=== PATIENT | female | born 1950 | race Caucasian/White ===

== ENCOUNTER → 2017-12-04 09:59 | Outpatient (CLI) | payer MEDICARE, OTHER, SELFPAY ==
[2017-12-04 11:29] LABS: Absolute Lymphocyte Count 2.54 X10^3/ul (0.83-4.51); Absolute Neutrophil Count 4.2 X10^3/uL (2.0-7.7); Basophil# 0.06 X10^3/uL; Basophil% 0.8 % (0-1); Eosinophils% 4.1 % (0-5); Hematocrit 37.2 % (37-47); Hemoglobin 11.2 g/dl (12.0-15.0); Lymphocyte # 2.54 X10^3/ul (4.0); Lymphocyte % 34.3 % (19-41); Mean Corp Hgb Conc 30.1 g/gl (32-36); Mean Corpuscular Hgb 26.1 pg (27.0-32.0); Mean Corpuscular Volume 86.7 fL (81-99); Mean Platelet Vol. 9.5 fl (6.2-12.0); Monocyte# 0.33 X10^3/uL; Monocyte% 4.5 % (0-10); Neutrophil # 4.16 X10^3/uL (2.7-7.7); Neutrophil % 56.2 % (47-70); Platelet Count 276 K/mm3 (150-450); RBC Distribution Width CV 14.4 % (11.6-14.6); RBC Distribution Width SD 45.3 fl (35.1-43.9); Red Blood Count 4.29 M/mm3 (4.2-5.4); White Blood Count 7.4 K/mm3 (4.4-11.0)
[2017-12-04 11:33] LABS: Microalbumin,Random Urine 12.3 mg/L (NO RANGE EST.); Microalbumin:Creatinine Ratio 8.2 mg/g CRE (<30 mg/g CRE)
[2017-12-04 11:36] LABS: POSITIVE COUNT NO; POSITIVE DIFFERENTIAL NO; POSITIVE MORPHOLOGY NO
[2017-12-04 12:01] LABS: T3 Total - Triiodothyronine 0.73 ng/mL (0.6-1.81)
[2017-12-04 12:04] LABS: ALB/GLOB Ratio 1.1 RATIO (0.9-2.4); AST(SGOT) 15 U/L (15-37); Alanine Aminotransfer ALT/SGPT 25 U/L (13-56); Albumin, Serum 3.7 g/dL (3.2-5.0); Alkaline Phosphatase 57 U/L (45-117); Anion Gap 8 (5-15); BUN 29 mg/dL (7-18); BUN/Creat Ratio 24.2 RATIO (10-20); Calcium,Total 8.4 mg/dL (8.5-10.1); Chloride 104 mmol/L (98-107); Cholesterol 163 mg/dL (200); EST Glomerular Filtration Rate 48 mL/min (>60); Est Glom Filt Rate - Afr Amer 58 mL/min (>60); Globulin 3.5 g/dL (2.2-4.2); Glucose 115 mg/dL (74-106); High Density Lipoprotein 46 mg/dL; Potassium 4.3 mmol/L (3.5-5.1); Protein, Total 7.2 g/dL (6.4-8.2); Sodium Level 139 mmol/L (136-145); T4 Free Direct 1.18 ng/dL (0.76-1.46); Thyroid Stim Hormone (TSH) 1.77 uIU/mL (0.358-3.74); Triglycerides 116 mg/dL; Very Low Density Lipoprotein 23 mg/dL (5-40)
== END ==
PROVIDERS: Family Provider Family Medicine; PCP Family Medicine; Visit Provider Family Medicine
DX: E11.22 Type 2 diabetes mellitus with diabetic chronic kidney disease (principal); N18.2 Chronic kidney disease, stage 2 (mild); E03.9 Hypothyroidism, unspecified; E78.1 Pure hyperglyceridemia
CPT/HCPCS: 36415; 80053; 80061; 82043; 82570; 84439; 84443; 84480; 85025

== ENCOUNTER → 2019-06-10 10:45 | Outpatient (CLI) | payer MEDICARE, OTHER, SELFPAY ==
[2019-06-10 12:40] LABS: Absolute Lymphocyte Count 2.16 X10^3/uL (0.83-4.51); Absolute Neutrophil Count 5.1 X10^3/uL (2.0-7.7); Basophil# 0.07 X10^3/uL; Basophil% 0.8 % (0-1); Eosinophil# 0.56 X10^3/uL; Eosinophils% 6.7 % (0-5); Hematocrit 37.3 % (37-47); Hemoglobin 11.1 g/dL (12.0-15.0); Lymphocyte # 2.16 X10^3/ul (4.0); Mean Corp Hgb Conc 29.8 g/dL (32-36); Mean Corpuscular Hgb 26.8 pg (27.0-32.0); Mean Corpuscular Volume 90.1 fL (81-99); Mean Platelet Vol. 9.8 fl (6.2-12.0); Monocyte# 0.44 X10^3/uL; Monocyte% 5.3 % (0-10); NRBC Flagged by Analyzer 0 % (0-5); Neutrophil # 5.06 X10^3/uL (2.7-7.7); Neutrophil % 60.8 % (47-70); Platelet Count 272 K/mm3 (150-450); RBC Distribution Width CV 14.6 % (11.6-14.6); RBC Distribution Width SD 47.7 fl (35.1-43.9); Red Blood Count 4.14 M/mm3 (4.2-5.4); White Blood Count 8.3 K/mm3 (4.4-11.0)
[2019-06-10 13:04] LABS: T3 Total - Triiodothyronine 0.82 ng/mL (0.6-1.81)
[2019-06-10 13:08] LABS: Hemoglobin A1c 6.6 % (4.2-6.3)
[2019-06-10 13:10] LABS: ALB/GLOB Ratio 1.1 RATIO (0.9-2.4); AST(SGOT) 11 U/L (15-37); Alanine Aminotransfer ALT/SGPT 26 U/L (13-56); Albumin, Serum 3.8 g/dL (3.2-5.0); Alkaline Phosphatase 62 U/L (45-117); Anion Gap 8 (5-15); BUN 40 mg/dL (7-18); BUN/Creat Ratio 27.2 RATIO (10-20); Calcium,Total 8.8 mg/dL (8.5-10.1); Chloride 108 mmol/L (98-107); Cholesterol 124 mg/dL (200); Creatinine, Serum 1.47 mg/dL (0.55-1.02); EST Glomerular Filtration Rate 38 mL/min (>60); Est Glom Filt Rate - Afr Amer 45 mL/min (>60); Globulin 3.6 g/dL (2.2-4.2); Glucose 136 mg/dL (74-106); High Density Lipoprotein 43 mg/dL; Potassium 4.7 mmol/L (3.5-5.1); Protein, Total 7.4 g/dL (6.4-8.2); Sodium Level 140 mmol/L (136-145); T4 Free Direct 1.29 ng/dL (0.76-1.46); Thyroid Stim Hormone (TSH) 1.01 uIU/mL (0.358-3.74); Triglycerides 138 mg/dL; Very Low Density Lipoprotein 28 mg/dL (5-40)
[2019-06-10 13:34] LABS: Microalbumin,Random Urine 13.3 mg/L (NO RANGE EST.); Microalbumin:Creatinine Ratio 6.7 mg/g CRE (<30 mg/g CRE)
== END ==
PROVIDERS: Family Provider Family Medicine; PCP Family Medicine; Visit Provider Family Medicine
DX: E11.22 Type 2 diabetes mellitus with diabetic chronic kidney disease (principal); N18.2 Chronic kidney disease, stage 2 (mild); E07.9 Disorder of thyroid, unspecified; E78.1 Pure hyperglyceridemia
CPT/HCPCS: 36415; 80053; 80061; 82043; 82570; 83036; 84439; 84443; 84480; 85025

== ENCOUNTER → 2019-08-26 09:36 | Outpatient (CLI) | payer MEDICARE, OTHER, SELFPAY ==
[2019-08-26 13:10] LABS: ALB/GLOB Ratio 1.1 RATIO (0.9-2.4); AST(SGOT) 14 U/L (15-37); Alanine Aminotransfer ALT/SGPT 26 U/L (13-56); Albumin, Serum 3.8 g/dL (3.2-5.0); Alkaline Phosphatase 59 U/L (45-117); Anion Gap 9 (5-15); BUN 35 mg/dL (7-18); BUN/Creat Ratio 22.9 RATIO (10-20); Calcium,Total 8.8 mg/dL (8.5-10.1); Chloride 106 mmol/L (98-107); Creatinine, Serum 1.53 mg/dL (0.55-1.02); EST Glomerular Filtration Rate 36 mL/min (>60); Est Glom Filt Rate - Afr Amer 43 mL/min (>60); Globulin 3.4 g/dL (2.2-4.2); Glucose 124 mg/dL (74-106); Potassium 4.2 mmol/L (3.5-5.1); Protein, Total 7.2 g/dL (6.4-8.2); Sodium Level 139 mmol/L (136-145)
== END ==
PROVIDERS: Family Provider Family Medicine; PCP Family Medicine; Visit Provider Family Medicine
DX: N28.9 Disorder of kidney and ureter, unspecified (principal)
CPT/HCPCS: 36415; 80053

== ENCOUNTER → 2019-09-22 15:25 | Outpatient (CLI) | payer MEDICARE, OTHER, SELFPAY ==
--- NOTE | 2019-09-22 15:30 | BI_ITS ---
MAMMOGRAPHY - BILATERAL SCREENING REASON FOR EXAM: Female, 69 years old. Routine annual screening examination. PERTINENT HISTORY: Grandmother with breast cancer. TECHNIQUE: Digital bilateral breast shaylee (3D mammographic acquisition) in the CC and MLO projections. 2-D mediolateral oblique (MLO) and craniocaudad (CC) views of both breasts were obtained. CAD: Full Field Digital Mammography with Computer Added Detection was performed. COMPARISON: Comparison is made with prior examination dated July 18, 2018. FINDINGS: Breast Composition: The breasts are almost entirely fatty. There are no dominant masses or suspicious calcifications. Stable benign-appearing bilateral axillary lymph nodes. No other significant abnormalities are identified. There has been no significant change since the prior study. BI/SCREEN MAMM (CAD) W/SHAYLEE BILAT IMPRESSION: Stable bilateral screening mammogram. Yearly follow-up mammogram recommended. (A) ASSESSMENT CATEGORY: BIRADS Category 2: Benign. A letter regarding these results will be sent to the patient by the facility within 30 days. Approximately 10% of breast cancers are not detected by mammography. A normal mammogram should not delay biopsy of a clinically suspicious abnormality. [id number] Electronically Signed: Seth Mcmahon, at 8:49 EST , Service support ,
--- NOTE | 2019-09-22 15:34 | BD_ITS ---
STUDY: DUAL ENERGY X-RAY ABSORPTIOMETRY / DXA REASON FOR EXAM: Female, 69 years old. 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 COMPARISON: None. FINDINGS: Lumbar Spine (L1-L4): g/cm2 (1.201) / T-score (0.2) / Z-score (1.8) Findings are suggestive of normal bone density with a low fracture risk. Left Femur Total: g/cm2 (0.904) / T-score (-0.8) / Z-score (0.5) Left Femoral Neck: g/cm2 (0.851) / T-score (-1.3) / Z-score (0.3) Right Femur Total: g/cm2 (0.891) / T-score (-0.9) / Z-score (0.4) Right Femoral Neck: g/cm2 (0.900) / T-score (-1.0) / Z-score (0.6) BD/Dexa Bone Density Study IMPRESSION: The patient is considered osteopenic as outlined below according to World Ori Organization (WHO) criteria with a low fracture risk. Reference Information: The T-score is the number of standard deviations above or below the standard which is normal for young adults at their peak bone mineral density. The World Health Organization (WHO) interprets the T-scores as follows: Above -1 Normal bone density Between -1 and -2.5 Osteopenia Equal to / or below -2.5 Osteoporosis As a practical clinical guideline, osteopenia may be graded as follows: Mild -1 through -1.5 Moderate -1.6 through -2.0 Severe -2.1 through -2.4 The Z-score is the number of standard deviations above or below age-matched controls. A Z-score of less than -1.5 would be considered abnormal. References: 1. NIH Osteoporosis and Related Bone Diseases http://www.osteo.org 2. International Society for Clinical Densitometry http://www.iscd.org 3. National Osteoporosis Foundation http://www.nof.org Electronically Signed: Seth Mcmahon, at 14:40 EST , Service support ,
--- NOTE | 2019-09-22 16:19 | RAD_ITS ---
STUDY: X-RAY - PELVIS AND BILATERAL HIPS REASON FOR EXAM: Female, 69 years old. Pain in both hips for a month or so. Pain since doing a lot of walking during lawn vacation. Fall last week. Increasing pain in left hip. TECHNIQUE: AP view of the pelvis.? 2 views of the right hip, and 2 views of the left hip were obtained. COMPARISON: None. FINDINGS: There is a non-specific bowel gas pattern. Normal visualized soft tissue structures. Normal bilateral iliac wings, sacroiliac joints and visualized sacrum. Normal bilateral superior and inferior pubic rami. Normal pubic symphysis. Normal bilateral ischial tuberosities. Normal visualized right femoral head. Normal right acetabulum. There is mild articular joint space narrowing of the right hip. Normal visualized left femoral head. Normal left acetabulum. There is mild articular joint space narrowing of the left hip. RAD/Hips B/L min 2 views w/ Pelvis IMPRESSION: Degenerative changes of both hips without acute abnormality Electronically Signed: Waqas Diehl DO at 23:28 EST Tel [phone], Service support ,
== END ==
PROVIDERS: Family Provider Family Medicine; PCP Family Medicine; Referring Provider Family Medicine; Visit Provider Family Medicine
DX: M25.551 Pain in right hip (principal); M25.552 Pain in left hip; Z12.31 Encounter for screening mammogram for malignant neoplasm of breast; M81.0 Age-related osteoporosis without current pathological fracture
CPT/HCPCS: 73521; 77063; 77067; 77080

== ENCOUNTER → 2020-06-29 10:18 | Outpatient (CLI) | payer MEDICARE, OTHER, SELFPAY ==
[2020-06-29 12:48] LABS: Absolute Lymphocyte Count 2.76 X10^3/uL (0.83-4.51); Absolute Neutrophil Count 5.5 X10^3/uL (2.0-7.7); Basophil# 0.07 X10^3/uL; Basophil% 0.8 % (0-1); Eosinophil# 0.36 X10^3/uL; Eosinophils% 3.9 % (0-5); Hematocrit 37.7 % (37-47); Hemoglobin 11.1 g/dL (12.0-15.0); Lymphocyte # 2.76 X10^3/ul (4.0); Lymphocyte % 30.1 % (19-41); Mean Corp Hgb Conc 29.4 g/dL (32-36); Mean Corpuscular Hgb 26.2 pg (27.0-32.0); Mean Corpuscular Volume 89.1 fL (81-99); Mean Platelet Vol. 10.2 fl (6.2-12.0); Monocyte# 0.47 X10^3/uL; Monocyte% 5.1 % (0-10); NRBC Flagged by Analyzer 0 % (0-5); Neutrophil # 5.49 X10^3/uL (2.7-7.7); Neutrophil % 59.8 % (47-70); Platelet Count 308 K/mm3 (150-450); RBC Distribution Width CV 14.1 % (11.6-14.6); RBC Distribution Width SD 45.4 fl (35.1-43.9); Red Blood Count 4.23 M/mm3 (4.2-5.4); White Blood Count 9.2 K/mm3 (4.4-11.0)
[2020-06-29 13:52] LABS: AST(SGOT) 13 U/L (15-37); Alanine Aminotransfer ALT/SGPT 26 U/L (13-56); Albumin, Serum 3.7 g/dL (3.2-5.0); Alkaline Phosphatase 76 U/L (45-117); Anion Gap 8 (5-15); BUN 38 mg/dL (7-18); BUN/Creat Ratio 24.7 RATIO (10-20); Calcium,Total 8.8 mg/dL (8.5-10.1); Chloride 106 mmol/L (98-107); Cholesterol 157 mg/dL (200); Creatinine, Serum 1.54 mg/dL (0.55-1.02); EST Glomerular Filtration Rate 36 mL/min (>60); Est Glom Filt Rate - Afr Amer 43 mL/min (>60); Globulin 3.8 g/dL (2.2-4.2); Glucose 137 mg/dL (74-106); High Density Lipoprotein 52 mg/dL; Potassium 4.2 mmol/L (3.5-5.1); Protein, Total 7.5 g/dL (6.4-8.2); Sodium Level 140 mmol/L (136-145); T4 Free Direct 1.03 ng/dL (0.76-1.46); Thyroid Stim Hormone (TSH) 3.87 uIU/mL (0.358-3.74); Triglycerides 159 mg/dL; Very Low Density Lipoprotein 32 mg/dL (5-40)
[2020-06-30 15:58] LABS: Microalbumin,Random Urine < 5.0 mg/L (NO RANGE EST.)
== END ==
PROVIDERS: PCP Family Medicine; Visit Provider Family Medicine
DX: E11.22 Type 2 diabetes mellitus with diabetic chronic kidney disease (principal); N18.2 Chronic kidney disease, stage 2 (mild); E03.9 Hypothyroidism, unspecified; E78.1 Pure hyperglyceridemia
CPT/HCPCS: 36415; 80053; 80061; 82043; 82570; 84439; 84443; 84481; 85025

== ENCOUNTER → 2020-07-27 14:12 | Outpatient (CLI) | payer MEDICARE, OTHER, SELFPAY ==
[2020-07-27 15:30] LABS: Absolute Lymphocyte Count 2.34 X10^3/uL (0.83-4.51); Absolute Neutrophil Count 6.3 X10^3/uL (2.0-7.7); Basophil# 0.06 X10^3/uL; Basophil% 0.6 % (0-1); Eosinophils% 2.2 % (0-5); Hematocrit 37.4 % (37-47); Hemoglobin 10.8 g/dL (12.0-15.0); Lymphocyte # 2.34 X10^3/ul (4.0); Lymphocyte % 25.2 % (19-41); Mean Corp Hgb Conc 28.9 g/dL (32-36); Mean Corpuscular Volume 90.1 fL (81-99); Monocyte# 0.39 X10^3/uL; Monocyte% 4.2 % (0-10); NRBC Flagged by Analyzer 0 % (0-5); Neutrophil # 6.25 X10^3/uL (2.7-7.7); Neutrophil % 67.5 % (47-70); Platelet Count 232 K/mm3 (150-450); RBC Distribution Width CV 14.6 % (11.6-14.6); RBC Distribution Width SD 48.1 fl (35.1-43.9); Red Blood Count 4.15 M/mm3 (4.2-5.4); White Blood Count 9.3 K/mm3 (4.4-11.0)
[2020-07-27 16:09] LABS: Anion Gap 5 (5-15); BUN 37 mg/dL (7-18); BUN/Creat Ratio 23.4 RATIO (10-20); Calcium,Total 8.5 mg/dL (8.5-10.1); Chloride 105 mmol/L (98-107); Creatinine, Serum 1.58 mg/dL (0.55-1.02); EST Glomerular Filtration Rate 34 mL/min (>60); Est Glom Filt Rate - Afr Amer 42 mL/min (>60); Ferritin 23 ng/mL (8-252); Free T3 2.2 pg/mL (2.18-3.98); Glucose 208 mg/dL (74-106); Iron 50 ug/dL (50-170); Potassium 4.4 mmol/L (3.5-5.1); Sodium Level 136 mmol/L (136-145); T4 Free Direct 1.21 ng/dL (0.76-1.46); Thyroid Stim Hormone (TSH) 0.84 uIU/mL (0.358-3.74)
[2020-07-27 16:15] LABS: Vitamin B12 292 pg/mL (211-911)
== END ==
PROVIDERS: PCP Family Medicine; Visit Provider Family Medicine
DX: E03.9 Hypothyroidism, unspecified (principal); D64.9 Anemia, unspecified; N18.30 Chronic kidney disease, stage 3 unspecified
CPT/HCPCS: 36415; 80048; 82607; 82728; 83540; 84439; 84443; 84481; 85025

== ENCOUNTER 2020-08-12 11:30 | Outpatient (RCR) | payer MEDICARE, OTHER, SELFPAY ==
--- NOTE | 2020-03-18 12:23 | HP.PTEVAL_ITS ---
Patient's Visit Information PATRICIA VALENCIA is a 69 year old F referred to Physical Therapy by Dr. Serafin Hurst DPM with a diagnosis of L humerous fracture. Date of Evaluation: 03/16/20 Physical Therapist: Paul Damon DPT - Visit Plan Frequency: 2-3x /Week Duration: 4-6 Weeks Plan: Start with PROM slowing increaseing as tolerated. Progressing towrads AAROM as tolerated. May use ice/heat as needed. - Subjective Pt. is here today for her initial evaluation with diagnosis of L humerous fracture. Pt. reports falling ~6 weeks ago, she slipped on 3 steps and fell onto her L arm. Pt. has subsequent 3 fractures of her proximal L humerous. Pt. was in sling until last week. She is weaning out of her sling currently. She did not wear today. Pt. is having pain with any attempts with lifting her arm, upper body dressing, grooming, and starts to ache more throughout the day. Pt. denies NT, but does have pain that extends down her arm to elbow at times. Pt. is to follow up with doctor in 1 month. Pt. is allowed to progress stretching both active and passively. pt. is hopeful to get back to all recreational and household activities without limitations. - Pain L shoulder Pain Intensity (Out of 10): 3 Pain Intensity Range: 1, 6 - Objective POSTURE: Pt. has slightly depresses L shoulder, slighh Forward shoulder. Pt. tends to keep her L arm in guarded posture. PALPATION: Pt. has increased tenderness along lateral aspect of her shoulder, throughout deltoid, subacromial space. Pt. is also tend at L lats, subscap, throughout scapular region. NEURO: Pt. has normal sensation of BUEs. ROM: L shoulder- PROM- 90deg, abd 87deg, ER 15deg. AROM:- flexion 75deg, abd 55deg, ER at side 15deg. R shoulder full ROM without increase in symptoms. - Goals Goal 1:: LTG: Pt. to be I with HEP. Goal Time Frame: 4-6 Weeks Goal 2:: STG: Pt. to have full PROM of L shoulder Goal Time Frame: 2-4 Weeks Goal 3:: LTG: Pt. to have full AROM of L shoulder without increase in symptoms. Goal Time Frame: 4-6 Weeks Goal 4:: STG: pt. to sleep throughout the night without increase in symptoms. Goal Time Frame: 2-4 Weeks Goal 5:: STG: Pt. to complete basic ADLs without increase in symptoms. Goal Time Frame: 2-4 Weeks - Rehabilitation Potential Physical Therapy Diagnosis: Pt. has signs and symptoms consistent wtih L humeral fracture without surgical fixation. Pt. has L shoulder hypombility, weakness and increased pain adn would benefit from PT to address these limitations, progressing back to all ADLs and recreational activiies without limitations. Rehabilitation Potential: Good - Anticipated Interventions Patient/Client Instruction: Educate patient on: Condition, Plan of Care, Risk Factors, Benefits of Fitness Program For the Purpose of:: To improve decision making, To facilitate caregiver knowledge, To improve self management, To prevent re-injury, To improve ability to perform tasks related to life management, To improve tolerance to ADL's Therapeutic Exercise to Include: Strength training, Power training, Endurance training, Postural training, Flexibilty training, Passive ROM, Active ROM, Scapular Strength/Stabilization For the Purpose of:: To decrease pain, To decrease swelling/inflammation, To increase ROM, To improve nutrient delivery to tissue, To increase oxygenation p erfusion IF ES: Yes Cryotherapy (ice pack, ice massage): Yes Thermo therapy (hot pack): Yes For the Purpose of:: To decrease pain, To decrease swelling/inflammation, To increase ROM, To improve nutrient delivery to tissue, To increase oxygenation perfusion Thank you for the opportunity to evaluate your patient. For Medicare and Medicare HMO plans, please review the plan of care and approve it. It will need to be FAXED BACK to us at [phone] for Medicare purposes. For Medicare only, by signing this I certify the plan of care. Please let me know if there are questions or concerns regarding this plan of care. Physician Signature: Date:
--- NOTE | 2020-04-28 12:58 | HP.PTREVAL ---
HI Hendrickson, It has been my pleasure to treat PATRICIA VALENCIA over the last 11 visits for L humerous fracture. Please see the progress note below for an update on the physical therapy plan of care! Subjective: Pt. being seen for her re assessment today. Pt. reports overall doing better. I am about 40% better.' Pt. reports being HEP compliant. Pt. reports being discharged from her physician, but is to follow up if needed or not preogressing as expected. Pt. reports having 2/10 pain pre treatment today. Objective/Function: Pt. is overall doing well. PROM: L shoulder- flexion 165deg, abd 155deg. AROM: L shoulder- flexion 90deg, abd 88deg. functional ER C2 aberrant motion, functional IR L3 mild increase NW. MMT: 3+/5 through. Pt. is doing well with her ROM, but still has pain with increased use of musculature of deltoid. Pt. has increased pain with increase activation of. Pt. is ready to initiate isometrics and progressing to strengthening tolerated. Plan Plan: Cont. with PROM end ranges, progress AROM. Initiate isometrics progressing to strengthening as able. Goals Goal 1:: LTG: Pt. to be I with HEP. Goal Time Frame: 4-6 Weeks Goal Progress: Progressing Goal 2:: STG: Pt. to have full PROM of L shoulder Goal Time Frame: 2-4 Weeks Goal Progress: Progressing Goal 3:: LTG: Pt. to have full AROM of L shoulder without increase in symptoms. Goal Time Frame: 4-6 Weeks Goal Progress: Progressing Goal 4:: STG: pt. to sleep throughout the night without increase in symptoms. Goal Time Frame: 2-4 Weeks Goal Progress: Progressing Goal 5:: STG: Pt. to complete basic ADLs without increase in symptoms. Goal Time Frame: 2-4 Weeks Goal Progress: Progressing Anticipated Interventions Patient/Client Instruction: Educate patient on: Condition, Plan of Care, Risk Factors, Benefits of Fitness Program For the Purpose of:: To improve decision making, To facilitate caregiver knowledge, To improve self management, To prevent re-injury, To improve ability to perform tasks related to life management, To improve tolerance to ADL's Therapeutic Exercise to Include: Strength training, Power training, Endurance training, Postural training, Flexibilty training, Passive ROM, Active ROM, Scapular Strength/Stabilization For the Purpose of:: To decrease pain, To decrease swelling/inflammation, To increase ROM, To improve nutrient delivery to tissue, To increase oxygenation perfusion IF ES: Yes Cryotherapy (ice pack, ice massage): Yes Thermo therapy (hot pack): Yes For the Purpose of:: To decrease pain, To decrease swelling/inflammation, To increase ROM, To improve nutrient delivery to tissue, To increase oxygenation perfusion Please do not hesitate to contact me at [phone] by phone or if you have questions or concerns regarding this new plan of care! Sincerely, СЕРГЕЙ RocheT
--- NOTE | 2020-06-07 12:24 | HP.PTREVAL ---
HI Hendrickson, It has been my pleasure to treat PATRICIA VALENCIA over the last 22 visits for L humerous fracture. Please see the progress note below for an update on the physical therapy plan of care! Subjective: Pt. reports overall doing better, I have really noticed a difference over the past few weeks. Pt. reports being 65% better overall. She still reports pain/stiffness with lifting her arm over head, behind her head and behind her back. Pt. reports 2/10 pain constantly with a sharp muscle spasm like pain occassional ~1 per day in deltoid region. Pt. denies N/T currently. Objective/Function: PROM: L shoulder- flexon 165deg, abd 155deg increase nW, ER at 90deg 65deg. IR at 9d0eg of abd 30deg increase NW. AROM: flexion 135deg, abd 110deg. functional ER C2 aberrant motion, functional IR L5 tight.. MMT: L shoulder- flexon 4-/5, abd 4-/5, ER 4/5, IR 4/5, ext 4+/5. Elbow 4+/5 flexion and extend. Pt is drier and grinder tender throughout. Pt. reports being able to complete more and more ADLs at home. She able to complete UB dressing, but is having trouble holding her arm over her head to do her hair and washing her hair. Plan Plan: Cont. to progress end range of motion, especially ER and flexion. Progress strengthening, including functionally as well. Goals Goal 1:: LTG: Pt. to be I with HEP. Goal Time Frame: 4-6 Weeks Goal Progress: Progressing Goal 2:: STG: Pt. to have full PROM of L shoulder Goal Time Frame: 2-4 Weeks Goal Progress: Progressing Goal 3:: LTG: Pt. to have full AROM of L shoulder without increase in symptoms. Goal Time Frame: 4-6 Weeks Goal Progress: Progressing Goal 4:: STG: pt. to sleep throughout the night without increase in symptoms. Goal Time Frame: 2-4 Weeks Goal Progress: Goal Met Goal 5:: STG: Pt. to complete basic ADLs without increase in symptoms. Goal Time Frame: 2-4 Weeks Goal Progress: Progressing Anticipated Interventions Patient/Client Instruction: Educate patient on: Condition, Plan of Care, Risk Factors, Benefits of Fitness Program For the Purpose of:: To improve decision making, To facilitate caregiver knowledge, To improve self management, To prevent re-injury, To improve ability to perform tasks related to life management, To improve tolerance to ADL's Therapeutic Exercise to Include: Strength training, Power training, Endurance training, Postural training, Flexibilty training, Passive ROM, Active ROM, Scapular Strength/Stabilization For the Purpose of:: To decrease pain, To decrease swelling/inflammation, To increase ROM, To improve nutrient delivery to tissue, To increase oxygenation perfusion IF ES: Yes Cryotherapy (ice pack, ice massage): Yes Thermo therapy (hot pack): Yes For the Purpose of:: To decrease pain, To decrease swelling/inflammation, To increase ROM, To improve nutrient delivery to tissue, To increase oxygenation perfusion Please do not hesitate to contact me at [phone] by phone or if you have questions or concerns regarding this new plan of care! Sincerely, Paul Damon DPT
--- NOTE | 2020-06-22 10:50 | HP.PTREVAL ---
HI Hendrickson, It has been my pleasure to treat PATRICIA VALENCIA over the last 27 visits for L humerous fracture. Please see the progress note below for an update on the physical therapy plan of care! Subjective: Pt. reprots that she has been having increased spasming in her L proximal arm recently. Pt. reports symptoms at proximal lateral aspect of her shoulder/humerus. Pt. denies N/T. Pt. has no pain at rest. Pt. did see her PCP who thinks she might have some biceps involvement, which may be true, but she reports most of her symptoms are more lateral to this structure. Objective/Function: PROM: L shoulder- flexion 140deg, abd 125deg, ER at 90deg 45deg. AROM: flexion 90deg, abd 88deg, functional ER C2 aherrant motion, functional IR L5/SI region. MMT: 4/5 throughout. Pt. is still pretty tender wtih MMT and functional use of her L shoulder. Pt. has been progressing, but has started to plateau with her mobility and strengthening. Pt. has increased pain with most testing, resulting in difficulty with functional mobility. I would recommend that she follow up with ortho again to determine healing and if there is another pathology going on. Plan Plan: Cont w/ POC easing back into exs. Goals Goal 1:: LTG: Pt. to be I with HEP. Goal Time Frame: 4-6 Weeks Goal Progress: Goal Met Goal 2:: STG: Pt. to have full PROM of L shoulder Goal Time Frame: 2-4 Weeks Goal Progress: Progressing Goal 3:: LTG: Pt. to have full AROM of L shoulder without increase in symptoms. Goal Time Frame: 4-6 Weeks Goal Progress: Progressing Goal 4:: STG: pt. to sleep throughout the night without increase in symptoms. Goal Time Frame: 2-4 Weeks Goal Progress: Progressing Goal 5:: STG: Pt. to complete basic ADLs without increase in symptoms. Goal Time Frame: 2-4 Weeks Goal Progress: Progressing Anticipated Interventions Patient/Client Instruction: Educate patient on: Condition, Plan of Care, Risk Factors, Benefits of Fitness Program For the Purpose of:: To improve decision making, To facilitate caregiver knowledge, To improve self management, To prevent re-injury, To improve ability to perform tasks related to life management, To improve tolerance to ADL's Therapeutic Exercise to Include: Strength training, Power training, Endurance training, Postural training, Flexibilty training, Passive ROM, Active ROM, Scapular Strength/Stabilization For the Purpose of:: To decrease pain, To decrease swelling/inflammation, To increase ROM, To improve nutrient delivery to tissue, To increase oxygenation perfusion IF ES: Yes Cryotherapy (ice pack, ice massage): Yes Thermo therapy (hot pack): Yes For the Purpose of:: To decrease pain, To decrease swelling/inflammation, To increase ROM, To improve nutrient delivery to tissue, To increase oxygenation perfusion Please do not hesitate to contact me at [phone] by phone or if you have questions or concerns regarding this new plan of care! Sincerely, СЕРГЕЙ RocheT
--- NOTE | 2020-07-19 10:49 | HP.PTREVAL ---
HI Hendrickson, It has been my pleasure to treat PATRICIA VALENCIA over the last 28 visits for L humerous fracture. Please see the progress note below for an update on the physical therapy plan of care! Subjective: Pt reports not completing exercises at home and having reduced pain over the last few days from taking oral steroids. Objective/Function: L shoulder ROM flex 124, abd 76, IR 70, ER 2 deg. Empty end feels in all planes d/t pain felt at end range. R shoulder WNL. L elbow strength flex 4+/5, ext 3+/5. Pain felt w/ ext testing. R elbow flex/ext 4+/5. Pt received MRI of her L shoulder on 06/28/20. Findings included SLAP type 2A tear, flap tear of the anterior labrum, 50% tear of supraspinatus insertion, evolving AVN, and adhesive capsulitis. Pt has been taking oral steroids to help reduce inflammation and pain. PT intervention ordered w/ diagnosis of Adhesive capsulitis of L shoulder and Sprain of L rotator cuff capsule. Goal of PT is to reduce the adhesive capsulitis and improve L shoulder ROM prior to having a shoulder replacement. Plan Plan: PROM of L shoulder to reduce adhesive capsulitis and improve overall ROM. Ultrasound, ice, and MH may also be used to help reduce inflammation and pain. Goals Goal 1:: LTG: Pt. to be I with HEP. Goal Time Frame: 4-6 Weeks Goal Progress: Goal Met Goal 2:: STG: Pt. to have full PROM of L shoulder Goal Time Frame: 2-4 Weeks Goal Progress: Progressing Goal 3:: LTG: Pt. to have full AROM of L shoulder without increase in symptoms. Goal Time Frame: 4-6 Weeks Goal Progress: Progressing Goal 4:: STG: pt. to sleep throughout the night without increase in symptoms. Goal Time Frame: 2-4 Weeks Goal Progress: Progressing Goal 5:: STG: Pt. to complete basic ADLs without increase in symptoms. Goal Time Frame: 2-4 Weeks Goal Progress: Progressing Anticipated Interventions Patient/Client Instruction: Educate patient on: Condition, Plan of Care, Risk Factors, Benefits of Fitness Program For the Purpose of:: To improve decision making, To facilitate caregiver knowledge, To improve self management, To prevent re-injury, To improve ability to perform tasks related to life management, To improve tolerance to ADL's Therapeutic Exercise to Include: Strength training, Power training, Endurance training, Postural training, Flexibilty training, Passive ROM, Active ROM, Scapular Strength/Stabilization For the Purpose of:: To decrease pain, To decrease swelling/inflammation, To increase ROM, To improve nutrient delivery to tissue, To increase oxygenation perfusion IF ES: Yes Cryotherapy (ice pack, ice massage): Yes Thermo therapy (hot pack): Yes For the Purpose of:: To decrease pain, To decrease swelling/inflammation, To increase ROM, To improve nutrient delivery to tissue, To increase oxygenation perfusion Please do not hesitate to contact me at [phone] by phone or if you have questions or concerns regarding this new plan of care! Sincerely, СЕРГЕЙ RocheT
--- NOTE | 2020-08-26 11:46 | HP.PTDCSUM ---
It has been my pleasure to treat PATRICIA DAYENIC referred by HI Hendrickson, with the diagnosis of L humerous fracture for a total of 33 visit(s). Discharge Date: 08/12/20 Please see the following information for a summary of their discharge status. Subjective: Pt. to have surgery in 2 weeks on her shoulder. Pt. will be DC as she will be under care of new physican for surgery. L shoulder Pain Intensity (Out of 10): 3 % Improvement: 25 Objective/Function: Pt. did well today. Pt. is following up with new physician for surgery in 2 weeks. Pt. will be DC at this point in time. Goal 1:: LTG: Pt. to be I with HEP. Goal Progress: Goal Met Goal 2:: STG: Pt. to have full PROM of L shoulder Goal Progress: Progressing Goal 3:: LTG: Pt. to have full AROM of L shoulder without increase in symptoms. Goal Progress: Progressing Goal 4:: STG: pt. to sleep throughout the night without increase in symptoms. Goal Progress: Progressing Goal 5:: STG: Pt. to complete basic ADLs without increase in symptoms. Goal Progress: Progressing Plan: DC as she is having new surgery. Discharge Comments: Pt. is scheduled to have surgery and will be DC to his care. If there are questions or concerns regarding this patient's physical therapy, please feel free to call me at [phone]. Thank you for the referral of this patient. Sincerely, Paul Damon DPT
== END 2020-08-12 19:00 | disposition home or self-care (01) ==
LOC: PT 11:30
PROVIDERS: PCP Family Medicine; Referring Provider Physician Assistant; Visit Provider Physician Assistant
DX: S42.232D 3-part fracture of surgical neck of left humerus, subsequent encounter for fracture with routine healing (principal); M75.02 Adhesive capsulitis of left shoulder; S43.422D Sprain of left rotator cuff capsule, subsequent encounter
CPT/HCPCS: 97110; 97140; 97161; 97164; 97530

== ENCOUNTER → 2020-08-22 12:22 | Outpatient (CLI) | payer MEDICARE, OTHER, SELFPAY ==
[2020-08-22 15:42] LABS: Absolute Lymphocyte Count 2.51 X10^3/uL (0.83-4.51); Absolute Neutrophil Count 6.6 X10^3/uL (2.0-7.7); Basophil# 0.06 X10^3/uL; Basophil% 0.6 % (0-1); Eosinophil# 0.27 X10^3/uL; Eosinophils% 2.7 % (0-5); Hematocrit 38.9 % (37-47); Hemoglobin 11.4 g/dL (12.0-15.0); Lymphocyte # 2.51 X10^3/ul (4.0); Lymphocyte % 25.3 % (19-41); Mean Corp Hgb Conc 29.3 g/dL (32-36); Mean Corpuscular Volume 88.6 fL (81-99); Mean Platelet Vol. 10.4 fl (6.2-12.0); Monocyte# 0.45 X10^3/uL; Monocyte% 4.5 % (0-10); NRBC Flagged by Analyzer 0 % (0-5); Neutrophil # 6.62 X10^3/uL (2.7-7.7); Neutrophil % 66.6 % (47-70); Platelet Count 340 K/mm3 (150-450); RBC Distribution Width CV 14.6 % (11.6-14.6); RBC Distribution Width SD 46.9 fl (35.1-43.9); Red Blood Count 4.39 M/mm3 (4.2-5.4); White Blood Count 9.9 K/mm3 (4.4-11.0)
[2020-08-22 16:04] LABS: AST(SGOT) 18 U/L (15-37); Alanine Aminotransfer ALT/SGPT 37 U/L (13-56); Albumin, Serum 3.8 g/dL (3.2-5.0); Alkaline Phosphatase 80 U/L (45-117); Anion Gap 6 (5-15); BUN 36 mg/dL (7-18); BUN/Creat Ratio 22.4 RATIO (10-20); Calcium,Total 8.9 mg/dL (8.5-10.1); Chloride 103 mmol/L (98-107); Creatinine, Serum 1.61 mg/dL (0.55-1.02); EST Glomerular Filtration Rate 34 mL/min (>60); Est Glom Filt Rate - Afr Amer 41 mL/min (>60); Globulin 3.9 g/dL (2.2-4.2); Glucose 193 mg/dL (74-106); Potassium 4.6 mmol/L (3.5-5.1); Protein, Total 7.7 g/dL (6.4-8.2); Sodium Level 136 mmol/L (136-145)
== END ==
PROVIDERS: PCP Family Medicine; Referring Provider Family Medicine; Visit Provider Family Medicine
DX: E11.22 Type 2 diabetes mellitus with diabetic chronic kidney disease (principal); N18.2 Chronic kidney disease, stage 2 (mild); Z51.81 Encounter for therapeutic drug level monitoring
CPT/HCPCS: 36415; 80053; 85025

== ENCOUNTER → 2020-11-02 14:01 | Outpatient (CLI) | payer MEDICARE, OTHER, SELFPAY ==
--- NOTE | 2020-11-02 14:03 | BI_ITS ---
MAMMOGRAPHY - BILATERAL SCREENING REASON FOR EXAM: Female, 70 years old. Routine annual screening examination. PERTINENT HISTORY: Sister with breast cancer. TECHNIQUE: Digital bilateral breast shaylee (3D mammographic acquisition) in the CC and MLO projections. 2-D mediolateral oblique (MLO) and craniocaudad (CC) views of both breasts were obtained. CAD: Full Field Digital Mammography with Computer Added Detection was performed. COMPARISON: Comparison is made with prior study dated 09/22/2019. FINDINGS: Breast Composition: The breasts are almost entirely fatty. There are no dominant masses or suspicious calcifications. Stable small benign appearing bilateral axillary lymph nodes. No other significant abnormalities are identified. There has been no significant change since the prior study. BI/SCRN MAMM (CAD)W/SHAYLEE BILAT IMPRESSION: Stable bilateral screening mammogram. Yearly follow-up mammogram recommended. (A) ASSESSMENT CATEGORY: BIRADS Category 2: Benign. A letter regarding these results will be sent to the patient by the facility within 30 days. Approximately 10% of breast cancers are not detected by mammography. A normal mammogram should not delay biopsy of a clinically suspicious abnormality. [id number] Electronically Signed: Seth Mcmahon MD at 14:43 EST , Service support ,
--- NOTE | 2020-11-02 14:28 | US_ITS ---
STUDY: RENAL ULTRASOUND - COMPLETE REASON FOR EXAM: Female, 70 years old. CKD 2 TECHNIQUE: Ultrasound evaluation of the kidneys was performed with real-time and static hough-scale imaging. COMPARISON: None. FINDINGS: RIGHT KIDNEY: Normal location of the right kidney, which is normal in size. The right kidney measures 9.1 cm x 5.9 cm x 4.6 cm. There is a normal cortex of the right kidney. The renal cortex measures 1.1 cm. There is no right renal mass or cyst. There are no right renal calculi. There is no right hydronephrosis. DISTAL RIGHT URETER: There is non-visualization of the distal right ureter. There is no demonstrated right ureterovesical junction calculus. There is a visualized right ureteral jet. LEFT KIDNEY: Normal location of the left kidney, which is normal in size. The left kidney measures 9.1 cm x 4 cm x 4.4 cm. There is a normal cortex of the left kidney. The renal cortex measures 1.1 cm. There is a 1 cm x 0.9 cm x 0.7 cm left renal cyst. There are no left renal calculi. There is an extra-renal pelvis of the left kidney. There is no distention of the renal calyces. DISTAL LEFT URETER: There is non-visualization of the distal left ureter. There is no demonstrated left ureterovesical junction calculus. There is a visualized left ureteral jet. BLADDER: The distended urinary bladder has a volume of 99 ml. There is a normal wall thickness of the distended urinary bladder. There is no demonstrated mass within the urinary bladder. There are no demonstrated bladder calculi. US/Kidney and Bladder IMPRESSION: Small left renal cyst. Left extrarenal pelvis. Electronically Signed: Seth Mcmahon MD at 15:07 EST , Service support ,
== END ==
LOC: OPBI 14:24 → US 14:27
PROVIDERS: PCP Family Medicine; Referring Provider Internal Medicine Nephrology; Visit Provider Internal Medicine Nephrology
DX: Z12.31 Encounter for screening mammogram for malignant neoplasm of breast (principal); N18.2 Chronic kidney disease, stage 2 (mild)
CPT/HCPCS: 76770; 77063; 77067

== ENCOUNTER 2020-11-04 15:30 | Outpatient (RCR) | payer MEDICARE, OTHER, SELFPAY ==
--- NOTE | 2020-08-26 10:22 | HP.PTEVAL_ITS ---
Patient's Visit Information PATRICIA VALENCIA is a 70 year old F referred to Physical Therapy by SHARMIN ESCOTO with a diagnosis of Adhesive Capsulitis. Date of Evaluation: 08/26/20 Physical Therapist: Paul Damon DPT - Visit Plan Frequency: 3x /Week Duration: 4-6 Weeks Plan: Start with phase I and II shoulder program. May use ice/heat as needed. - Subjective Pt. is here today for her intiial evaluation with diagnosis of adhesive ca psulitis. Pt. had previously been seen for a proximal humerus fx. Pt. initially progressed well, but started to have high levels of pain once phase III started. Ultimately ended up getting MRI, suggesting avascular necrosis and RTC tear. Physician did surgery yesterday and ultimately only had adhesive capsulitis with subsequent release. Pt. arrives today still under nerve block and reports minimal feeling and volitional movement of her L arm. Pt. arrives in sling with bandage in place. Bandages to be taken off tomorrow. Pt. is hopeful to reduce symptoms and regain ROM/strength in order to get back to all recreational activities and wants to be able to hold her grandson without limitations. - Pain L shoulder Pain Intensity (Out of 10): 0 Pain Intensity Range: 0, 5 - Objective POSTURE: Pt. has decent posture in stance, L shoulder in guarded posture at side. PALPATION: Bandage in place, no signs of infection, mild brusing in UT region, mild swelling here as well. NEURO: Decreased sensation to light touch, able to sense firmer palpation. Expected after block. Normal DTR of BUEs. ROM: PROM: L shoulder flexion 175deg, abd 165deg, ER at 90deg of abd 85deg, IR at 90deg of abd 40deg. No pain associated with ROM this date. Fluid mobility of L shoulder throughout. MMT: DNT due to nerve block this date. - Goals Goal 1:: LTG: Pt. to be I with HEP. Goal Time Frame: 2-4 Weeks Goal 2:: STG: Pt. to have full PROM of L shoulder with minimal symptoms. Goal Time Frame: 2-4 Weeks Goal 3:: LTG: Pt. to have full AROM of L shoulder with 0-1/10 pain. Goal Time Frame: 4-6 Weeks Goal 4:: STG: Pt. to sleep throughout the night without increase in symptoms. Goal Time Frame: 2-4 Weeks Goal 5:: LTG: Pt. to complete all ADLS and IADLs without limitatons. Goal Time Frame: 4-6 Weeks - Rehabilitation Potential Physical Therapy Diagnosis: Pt. has signs and symptoms consistent with adhesive capsulitis with subsequent surgical release. Pt. has good PROM currently, but is under nerve block currently. She needs PT to work on maintain her current motion, progress AROM then back to functional exercises as tolerated. Rehabilitation Potential: Excellent - Anticipated Interventions Patient/Client Instruction: Educate patient on: Condition, Plan of Care, Risk Factors, Benefits of Fitness Program For the Purpose of:: To facilitate caregiver knowledge, To improve self management, To prevent re-injury, To improve ability to perform tasks related to life management, To improve tolerance to ADL's Therapeutic Exercise to Include: Strength training, Power training, Endurance training, Postural training, Flexibilty training, Passive ROM, Active ROM, Scapular Strength/Stabilization For the Purpose of:: To decrease pain, To decrease swelling/inflammation, To increase ROM, To improve nutrient delivery to tissue, To increase oxygenation perfusion, To improve muscle performance and motor function, To improve health of tissue, To decrease soft tissue restriction, To increase flexibility/ROM Manual Therapy Techniques to Include: Mobilization, Passive ROM, Soft tissue mobilization For the Purpose of:: To decrease pain, To decrease swelling/inflammation, To increase ROM, To improve nutrient delivery to tissue Cryotherapy (ice pack, ice massage): Yes Thermo therapy (hot pack): Yes For the Purpose of:: To decrease pain, To decrease swelling/inflammation, To increase ROM, To improve nutrient delivery to tissue Thank you for the opportunity to evaluate your patient. For Medicare and Medicare HMO plans, please review the plan of care and approve it. It will need to be FAXED BACK to us at [phone] for Medicare purposes. For Medicare only, by signing this I certify the plan of care. Please let me know if there are questions or concerns regarding this plan of care. Physician Signature: Date:
--- NOTE | 2020-09-27 13:31 | HP.PTREVAL ---
SHARMIN ESCOTO, It has been my pleasure to treat PATRICIA VALENCIA over the last 10 visits for Adhesive Capsulitis. Please see the progress note below for an update on the physical therapy plan of care! Subjective: Pt. reports I am really feeling like I am getting better.' Pt. reports no pain pre treatment. Objective/Function: Pt. is doing a lot better. PROM: L shoulder- flexion 170deg, abd 165deg, ER at 90deg 80deg, IR at 9d0eg 50deg. AROM: L shoulder- flexion 145deg, abd 140deg, functional ER C3, functional IR L5. MMT: 4/5 throuhgout no increase in symptoms. Pt. is tolerating all exercises well. She is progressing as expected. I have added some isometrics at this point Plan Plan: COnt. to progress. Pt. to follow up with physician next week. Goals Goal 1:: LTG: Pt. to be I with HEP. Goal Time Frame: 2-4 Weeks Goal Progress: Progressing Goal 2:: STG: Pt. to have full PROM of L shoulder with minimal symptoms. Goal Time Frame: 2-4 Weeks Goal Progress: Progressing Goal 3:: LTG: Pt. to have full AROM of L shoulder with 0-1/10 pain. Goal Time Frame: 4-6 Weeks Goal Progress: Progressing Goal 4:: STG: Pt. to sleep throughout the night without increase in symptoms. Goal Time Frame: 2-4 Weeks Goal Progress: Progressing Goal 5:: LTG: Pt. to complete all ADLS and IADLs without limitatons. Goal Time Frame: 4-6 Weeks Goal Progress: Progressing Anticipated Interventions Patient/Client Instruction: Educate patient on: Condition, Plan of Care, Risk Factors, Benefits of Fitness Program For the Purpose of:: To facilitate caregiver knowledge, To improve self management, To prevent re-injury, To improve ability to perform tasks related to life management, To improve tolerance to ADL's Therapeutic Exercise to Include: Strength training, Power training, Endurance training, Postural training, Flexibilty training, Passive ROM, Active ROM, Scapular Strength/Stabilization For the Purpose of:: To decrease pain, To decrease swelling/inflammation, To increase ROM, To improve nutrient delivery to tissue, To increase oxygenation perfusion, To improve muscle performance and motor function, To improve health of tissue, To decrease soft tissue restriction, To increase flexibility/ROM Manual Therapy Techniques to Include: Mobilization, Passive ROM, Soft tissue mobilization For the Purpose of:: To decrease pain, To decrease swelling/inflammation, To increase ROM, To improve nutrient delivery to tissue Cryotherapy (ice pack, ice massage): Yes Thermo therapy (hot pack): Yes For the Purpose of:: To decrease pain, To decrease swelling/inflammation, To increase ROM, To improve nutrient delivery to tissue Please do not hesitate to contact me at [phone] by phone or if you have questions or concerns regarding this new plan of care! Sincerely, СЕРГЕЙ RocheT
--- NOTE | 2020-11-04 16:50 | HP.PTDCSUM ---
It has been my pleasure to treat PATRICIA Laura STUDENIC referred by SHARMIN ESCOTO, with the diagnosis of Adhesive Capsulitis for a total of 18 visit(s). Discharge Date: 11/04/20 Please see the following information for a summary of their discharge status. Subjective: Pt. reprots no pain today. I am doing all the things that I want to be doing. She reports being HEP compliant and has started a gym routine as well. Pt. reports being 85% better overall. L shoulder Pain Intensity (Out of 10): 0 % Improvement: 85 Objective/Function: Pt. has good ROM of her L shoulder, close to full without limitations. SLight loss of functinal IR, but is improving. Pt. has regained a good deal of strength as well. She is no longer having any pain and is doing and HEP and gym strengthening exercises. Pt. will be DC to HEp at this point in time. Goal 1:: LTG: Pt. to be I with HEP. Goal Progress: Goal Met Goal 2:: STG: Pt. to have full PROM of L shoulder with minimal symptoms. Goal Progress: Goal Met Goal 3:: LTG: Pt. to have full AROM of L shoulder with 0-1/10 pain. Goal Progress: Progressing Goal 4:: STG: Pt. to sleep throughout the night without increase in symptoms. Goal Progress: Goal Met Goal 5:: LTG: Pt. to complete all ADLS and IADLs without limitatons. Goal Progress: Goal Met Plan: DC to HEP and gym strengthening/ROM exercises. Discharge Comments: Pt. wll be DC to HEP and gym exercises at this point in time. Pt. has progressed very well with both ROM and functional strengthening. If there are questions or concerns regarding this patient's physical therapy, please feel free to call me at [phone]. Thank you for the referral of this patient. Sincerely, Paul Damon DPT
== END 2020-11-04 19:00 | disposition home or self-care (01) ==
LOC: PT 15:30
PROVIDERS: PCP Family Medicine
DX: M75.02 Adhesive capsulitis of left shoulder (principal)
CPT/HCPCS: 97110; 97161; 97164

== ENCOUNTER → 2020-11-23 11:42 | Outpatient (CLI) | payer MEDICARE, OTHER, SELFPAY ==
[2020-11-23 15:17] LABS: Absolute Lymphocyte Count 1.73 X10^3/uL (0.83-4.51); Absolute Neutrophil Count 4.9 X10^3/uL (2.0-7.7); Basophil# 0.07 X10^3/uL; Basophil% 0.9 % (0-1); Eosinophil# 0.24 X10^3/uL; Eosinophils% 3.2 % (0-5); Hematocrit 35.8 % (37-47); Hemoglobin 10.4 g/dL (12.0-15.0); Lymphocyte # 1.73 X10^3/ul (4.0); Lymphocyte % 23.2 % (19-41); Mean Corp Hgb Conc 29.1 g/dL (32-36); Mean Corpuscular Hgb 24.8 pg (27.0-32.0); Mean Corpuscular Volume 85.2 fL (81-99); Mean Platelet Vol. 10.4 fl (6.2-12.0); Monocyte# 0.52 X10^3/uL; NRBC Flagged by Analyzer 0 % (0-5); Neutrophil # 4.87 X10^3/uL (2.7-7.7); Neutrophil % 65.4 % (47-70); Platelet Count 298 K/mm3 (150-450); RBC Distribution Width SD 46.4 fl (35.1-43.9); White Blood Count 7.5 K/mm3 (4.4-11.0)
[2020-11-23 15:42] LABS: Vitamin B12 473 pg/mL (211-911); Vitamin D,25 Hydroxy 26.8 ng/mL
[2020-11-23 15:44] LABS: Hemoglobin A1c 7.5 % (3.8-5.6)
[2020-11-23 15:57] LABS: ALB/GLOB Ratio 1.1 RATIO (0.9-2.4); AST(SGOT) 29 U/L (15-37); Alanine Aminotransfer ALT/SGPT 57 U/L (13-56); Albumin, Serum 3.6 g/dL (3.2-5.0); Alkaline Phosphatase 83 U/L (45-117); Anion Gap 7 (5-15); BUN 34 mg/dL (7-18); BUN/Creat Ratio 20.5 RATIO (10-20); Calcium,Total 8.7 mg/dL (8.5-10.1); Chloride 106 mmol/L (98-107); Creatinine, Serum 1.66 mg/dL (0.55-1.02); EST Glomerular Filtration Rate 33 mL/min (>60); Est Glom Filt Rate - Afr Amer 39 mL/min (>60); Globulin 3.4 g/dL (2.2-4.2); Glucose 202 mg/dL (74-106); Potassium 4.6 mmol/L (3.5-5.1); Sodium Level 138 mmol/L (136-145); Thyroid Stim Hormone (TSH) 1.31 uIU/mL (0.358-3.74)
== END ==
PROVIDERS: PCP Family Medicine; Referring Provider Family Medicine; Visit Provider Family Medicine
DX: E11.22 Type 2 diabetes mellitus with diabetic chronic kidney disease (principal); N18.30 Chronic kidney disease, stage 3 unspecified; E07.9 Disorder of thyroid, unspecified; E53.8 Deficiency of other specified B group vitamins; E55.9 Vitamin D deficiency, unspecified; Z51.81 Encounter for therapeutic drug level monitoring
CPT/HCPCS: 36415; 80053; 82306; 82607; 83036; 84439; 84443; 84481; 85025

== ENCOUNTER → 2020-12-02 13:27 | Outpatient (CLI) | payer MEDICARE, OTHER, SELFPAY ==
[2020-12-02 15:10] LABS: Platelet Count 341 K/mm3 (150-450); RET-HE 26.4 pg (30-35); Reticulocyte Count 1.86 % (0.5-1.5)
[2020-12-02 15:27] LABS: Ferritin 17 ng/mL (8-252); Iron 33 ug/dL (50-170)
== END ==
PROVIDERS: PCP Family Medicine; Referring Provider Family Medicine; Visit Provider Family Medicine
DX: E61.1 Iron deficiency (principal); D64.9 Anemia, unspecified
CPT/HCPCS: 36415; 82728; 83540; 85045

== ENCOUNTER 2020-12-13 11:02 | Outpatient (CLI) | payer MEDICARE, OTHER, SELFPAY ==
[2020-12-13 11:11] VITALS: BP 125/54; PULSE 86; RESP 16; TEMP 35.8; O2SAT 95; BMI 41.8
[2020-12-13] MEDS: 0.9% NaCl Peripheral Flush Adult/Peds IV (11:21)
[2020-12-13] MEDS: 0.9% NaCl IVPB Med Flush (250 mL) 15 ML IV (11:28)
[2020-12-13 12:07] VITALS: BP 105/40; PULSE 69; RESP 16; TEMP 35.9; O2SAT 95
[2020-12-13 12:40] VITALS: BP 105/40; PULSE 69; RESP 16; TEMP 35.9; O2SAT 95
== END 2020-12-13 15:00 | disposition home or self-care (01) ==
LOC: MEDOUTP 11:04
PROVIDERS: PCP Family Medicine; Referring Provider Family Medicine; Visit Provider Family Medicine
DX: D50.9 Iron deficiency anemia, unspecified (principal); K90.9 Intestinal malabsorption, unspecified
CPT/HCPCS: 96365; J1756; J7050; A4216

== ENCOUNTER 2020-12-27 10:56 | Outpatient (CLI) | payer MEDICARE, OTHER, SELFPAY ==
[2020-12-27] MEDS: 0.9% NaCl IVPB Med Flush (250 mL) 15 ML IV (11:24)
[2020-12-27] MEDS: 0.9% NaCl Peripheral Flush Adult/Peds IV (11:24)
[2020-12-27 11:40] VITALS: BP 126/64; PULSE 83; RESP 16; TEMP 35.7; O2SAT 96; BMI 41.8
[2020-12-27 12:05] VITALS: BP 98/58; PULSE 67; RESP 16; TEMP 36.3; O2SAT 95
== END 2020-12-27 14:00 ==
LOC: MEDOUTP 10:57
PROVIDERS: PCP Family Medicine; Referring Provider Family Medicine; Visit Provider Family Medicine
DX: D50.9 Iron deficiency anemia, unspecified (principal); K90.9 Intestinal malabsorption, unspecified
CPT/HCPCS: 96365; J1756; J7050; A4216

== ENCOUNTER → 2021-01-10 10:32 | Outpatient (CLI) | payer MEDICARE, OTHER, SELFPAY ==
[2020-12-27 11:40] VITALS: BMI 41.8
[2021-01-10] MEDS: 0.9% NaCl Peripheral Flush Adult/Peds IV (11:12)
[2021-01-10] MEDS: 0.9% NaCl IVPB Med Flush (250 mL) 15 ML IV (11:13)
[2021-01-10 11:16] VITALS: BP 113/58; PULSE 67; RESP 16; TEMP 36.1; O2SAT 96
[2021-01-10 12:00] VITALS: BP 128/67; PULSE 64
== END ==
PROVIDERS: PCP Family Medicine; Referring Provider Family Medicine; Visit Provider Family Medicine
DX: K90.9 Intestinal malabsorption, unspecified (principal); D50.9 Iron deficiency anemia, unspecified
CPT/HCPCS: 96365; J1756; J7050; A4216

== ENCOUNTER → 2021-01-24 10:28 | Outpatient (CLI) | payer MEDICARE, OTHER, SELFPAY ==
[2020-12-27 11:40] VITALS: BMI 41.8
[2021-01-24 10:36] VITALS: BP 122/50; PULSE 75; RESP 16; TEMP 35.8; O2SAT 96; BMI 41.7
[2021-01-24] MEDS: 0.9% NaCl Peripheral Flush Adult/Peds IV (11:02)
[2021-01-24] MEDS: 0.9% NaCl IVPB Med Flush (250 mL) 15 ML IV (11:02)
== END ==
PROVIDERS: PCP Family Medicine; Referring Provider Family Medicine; Visit Provider Family Medicine
DX: K90.9 Intestinal malabsorption, unspecified (principal); D50.9 Iron deficiency anemia, unspecified
CPT/HCPCS: 96365; J1756; J7050; A4216

== ENCOUNTER → 2021-02-07 10:27 | Outpatient (CLI) | payer MEDICARE, OTHER, SELFPAY ==
[2021-01-24 10:36] VITALS: BMI 41.7
[2021-02-07] MEDS: 0.9% NaCl Peripheral Flush Adult/Peds IV (10:55)
[2021-02-07] MEDS: 0.9% NaCl IVPB Med Flush (250 mL) 15 ML IV (10:55)
[2021-02-07 11:05] VITALS: BP 112/46; PULSE 70; RESP 16; TEMP 36.2; O2SAT 96; BMI 41.1
[2021-02-07 11:08] LABS: Absolute Lymphocyte Count 2.13 X10^3/uL (0.83-4.51); Absolute Neutrophil Count 4.6 X10^3/uL (2.0-7.7); Basophil# 0.04 X10^3/uL; Basophil% 0.5 % (0-1); Eosinophil# 0.25 X10^3/uL; Eosinophils% 3.4 % (0-5); Hematocrit 39.3 % (37-47); Hemoglobin 11.8 g/dL (12.0-15.0); Lymphocyte # 2.13 X10^3/ul (0.83-4.51); Lymphocyte % 29.1 % (19-41); Mean Corpuscular Hgb 26.6 pg (27.0-32.0); Mean Corpuscular Volume 88.7 fL (81-99); Mean Platelet Vol. 9.7 fl (6.2-12.0); Monocyte# 0.33 X10^3/uL; Monocyte% 4.5 % (0-10); NRBC Flagged by Analyzer 0 % (0-5); Neutrophil # 4.55 X10^3/uL (2.7-7.7); Neutrophil % 62.1 % (47-70); Platelet Count 215 K/mm3 (150-450); RBC Distribution Width SD 54.7 fl (35.1-43.9); Red Blood Count 4.43 M/mm3 (4.2-5.4); Reticulocyte Count 1.96 % (0.5-1.5); White Blood Count 7.3 K/mm3 (4.4-11.0)
[2021-02-07 11:22] LABS: Iron 63 ug/dL (50-170)
[2021-02-07 11:44] VITALS: BP 115/50; PULSE 69; RESP 16; TEMP 36.2; O2SAT 97
[2021-02-07 19:05] LABS: Xtra Tube EP Lab EXTRA TUBE
== END ==
PROVIDERS: PCP Family Medicine; Referring Provider Family Medicine; Visit Provider Family Medicine
DX: D50.9 Iron deficiency anemia, unspecified (principal); K90.9 Intestinal malabsorption, unspecified
CPT/HCPCS: 96365; 83540; 85025; 85045; J1756; J7050; A4216

== ENCOUNTER → 2021-02-20 15:04 | Outpatient (CLI) | payer MEDICARE, OTHER, SELFPAY ==
[2021-02-07 11:05] VITALS: BMI 41.1
[2021-02-20 17:55] LABS: Absolute Lymphocyte Count 2.17 X10^3/uL (0.83-4.51); Absolute Neutrophil Count 4.6 X10^3/uL (2.0-7.7); Basophil# 0.07 X10^3/uL; Basophil% 0.9 % (0-1); Hematocrit 38.5 % (37-47); Hemoglobin 11.6 g/dL (12.0-15.0); Lymphocyte # 2.17 X10^3/ul (0.83-4.51); Lymphocyte % 29.1 % (19-41); Mean Corp Hgb Conc 30.1 g/dL (32-36); Mean Corpuscular Hgb 26.9 pg (27.0-32.0); Mean Corpuscular Volume 89.1 fL (81-99); Mean Platelet Vol. 10.4 fl (6.2-12.0); Monocyte# 0.32 X10^3/uL; Monocyte% 4.3 % (0-10); NRBC Flagged by Analyzer 0 % (0-5); Neutrophil # 4.58 X10^3/uL (2.7-7.7); Neutrophil % 61.4 % (47-70); Platelet Count 230 K/mm3 (150-450); RBC Distribution Width CV 17.1 % (11.6-14.6); RBC Distribution Width SD 55.3 fl (35.1-43.9); Red Blood Count 4.32 M/mm3 (4.2-5.4); White Blood Count 7.5 K/mm3 (4.4-11.0)
[2021-02-20 18:17] LABS: Vitamin B12 703 pg/mL (211-911)
[2021-02-20 18:23] LABS: Hemoglobin A1c 7.2 % (3.8-5.6)
[2021-02-20 18:29] LABS: ALB/GLOB Ratio 1.2 RATIO (0.9-2.4); AST(SGOT) 27 U/L (15-37); Alanine Aminotransfer ALT/SGPT 53 U/L (13-56); Albumin, Serum 3.5 g/dL (3.2-5.0); Alkaline Phosphatase 81 U/L (45-117); Anion Gap 9 (5-15); BUN 34 mg/dL (7-18); BUN/Creat Ratio 21.8 RATIO (10-20); Calcium,Total 8.4 mg/dL (8.5-10.1); Chloride 106 mmol/L (98-107); Creatinine, Serum 1.56 mg/dL (0.55-1.02); EST Glomerular Filtration Rate 35 mL/min (>60); Est Glom Filt Rate - Afr Amer 42 mL/min (>60); Free T3 2.4 pg/mL (2.18-3.98); Globulin 2.9 g/dL (2.2-4.2); Glucose 251 mg/dL (74-106); Potassium 4.9 mmol/L (3.5-5.1); Protein, Total 6.4 g/dL (6.4-8.2); Sodium Level 141 mmol/L (136-145); T4 Free Direct 1.14 ng/dL (0.76-1.46); Thyroid Stim Hormone (TSH) 0.13 uIU/mL (0.358-3.74)
== END ==
PROVIDERS: PCP Family Medicine; Referring Provider Family Medicine; Visit Provider Family Medicine
DX: E03.9 Hypothyroidism, unspecified (principal); E53.8 Deficiency of other specified B group vitamins; D64.9 Anemia, unspecified; E11.9 Type 2 diabetes mellitus without complications
CPT/HCPCS: 36415; 80053; 82607; 83036; 84439; 84443; 84481; 85025

== ENCOUNTER → 2021-05-25 11:20 | Outpatient (CLI) | payer MEDICARE, OTHER, SELFPAY ==
[2021-05-25 15:12] LABS: Absolute Lymphocyte Count 2.44 X10^3/uL (0.83-4.51); Absolute Neutrophil Count 5.3 X10^3/uL (2.0-7.7); Basophil# 0.07 X10^3/uL; Basophil% 0.8 % (0-1); Eosinophil# 0.34 X10^3/uL; Eosinophils% 3.9 % (0-5); Hematocrit 41.3 % (37-47); Hemoglobin 12.9 g/dL (12.0-15.0); Lymphocyte # 2.44 X10^3/ul (0.83-4.51); Lymphocyte % 28.3 % (19-41); Mean Corp Hgb Conc 31.2 g/dL (32-36); Mean Corpuscular Hgb 29.7 pg (27.0-32.0); Mean Corpuscular Volume 94.9 fL (81-99); Mean Platelet Vol. 10.2 fl (6.2-12.0); Monocyte# 0.47 X10^3/uL; Monocyte% 5.4 % (0-10); NRBC Flagged by Analyzer 0 % (0-5); Neutrophil % 61.5 % (47-70); Platelet Count 253 K/mm3 (150-450); RBC Distribution Width CV 13.9 % (11.6-14.6); RBC Distribution Width SD 48.5 fl (35.1-43.9); Red Blood Count 4.35 M/mm3 (4.2-5.4); White Blood Count 8.6 K/mm3 (4.4-11.0)
[2021-05-25 16:10] LABS: AST(SGOT) 31 U/L (15-37); Alanine Aminotransfer ALT/SGPT 63 U/L (13-56); Albumin, Serum 3.6 g/dL (3.2-5.0); Alkaline Phosphatase 70 U/L (45-117); Anion Gap 7 (5-15); BUN 30 mg/dL (7-18); BUN/Creat Ratio 16.2 RATIO (10-20); Calcium,Total 8.6 mg/dL (8.5-10.1); Chloride 104 mmol/L (98-107); Creatinine, Serum 1.85 mg/dL (0.55-1.02); EST Glomerular Filtration Rate 29 mL/min (>60); Est Glom Filt Rate - Afr Amer 35 mL/min (>60); Ferritin 226 ng/mL (8-252); Free T3 2.8 pg/mL (2.18-3.98); Globulin 3.6 g/dL (2.2-4.2); Glucose 239 mg/dL (74-106); Iron 67 ug/dL (50-170); Potassium 4.5 mmol/L (3.5-5.1); Protein, Total 7.2 g/dL (6.4-8.2); Sodium Level 135 mmol/L (136-145); T4 Free Direct 1.15 ng/dL (0.76-1.46); Thyroid Stim Hormone (TSH) 0.53 uIU/mL (0.358-3.74)
[2021-05-25 16:19] LABS: Vitamin B12 948 pg/mL (211-911); Vitamin D,25 Hydroxy 52.5 ng/mL
== END ==
PROVIDERS: PCP Family Medicine; Referring Provider Family Medicine; Visit Provider Family Medicine
DX: E03.9 Hypothyroidism, unspecified (principal); E11.9 Type 2 diabetes mellitus without complications; Z51.81 Encounter for therapeutic drug level monitoring; E61.1 Iron deficiency; E53.8 Deficiency of other specified B group vitamins; E55.9 Vitamin D deficiency, unspecified
CPT/HCPCS: 36415; 80053; 82306; 82607; 82728; 83540; 84439; 84443; 84481; 85025

== ENCOUNTER → 2021-07-31 14:16 | Outpatient (CLI) | payer MEDICARE, OTHER, SELFPAY ==
[2021-07-31 18:17] LABS: Protein, Urine (Random) < 6.0 mg/dL (<11.9); Protein:Creat Ratio 139 mg/g CRE (0-200)
[2021-07-31 18:18] LABS: Anion Gap 7 (5-15); BUN 31 mg/dL (7-18); BUN/Creat Ratio 19.3 RATIO (10-20); Calcium,Total 8.9 mg/dL (8.5-10.1); Chloride 101 mmol/L (98-107); Creatinine, Serum 1.61 mg/dL (0.55-1.02); EST Glomerular Filtration Rate 34 mL/min (>60); Est Glom Filt Rate - Afr Amer 41 mL/min (>60); Glucose 179 mg/dL (74-106); Potassium 4.6 mmol/L (3.5-5.1); Sodium Level 136 mmol/L (136-145)
== END ==
PROVIDERS: PCP Family Medicine; Referring Provider Internal Medicine Nephrology; Visit Provider Internal Medicine Nephrology
DX: N18.2 Chronic kidney disease, stage 2 (mild) (principal)
CPT/HCPCS: 36415; 80048; 82570; 84156

== ENCOUNTER 2021-12-01 13:52 | Outpatient (CLI) | payer MEDICARE, SELFPAY ==
--- NOTE | 2021-12-01 14:01 | BI_ITS ---
MAMMOGRAPHY - BILATERAL SCREENING REASON FOR EXAM: Female, 71 years old. Routine annual screening examination. PERTINENT HISTORY: Sister with breast cancer. TECHNIQUE: Digital bilateral breast shaylee (3D mammographic acquisition) in the CC and MLO projections. 2-D mediolateral oblique (MLO) and craniocaudad (CC) views of both breasts were obtained. CAD: Full Field Digital Mammography with Computer Added Detection was performed. COMPARISON: Comparison is made with prior study dated 11/02/2020 and 09/22/2019. FINDINGS: Breast Composition: The breasts are almost entirely fatty. There are no dominant masses or suspicious calcifications. Stable small benign-appearing bilateral axillary lymph nodes. No other significant abnormalities are identified. There has been no significant change since the prior study. BI/SCRN MAMM (CAD)W/SHAYLEE BILAT IMPRESSION: Stable bilateral screening mammogram. Yearly follow-up mammogram recommended. (A) ASSESSMENT CATEGORY: BIRADS Category 2: Benign. A letter regarding these results will be sent to the patient by the facility within 30 days. Approximately 10% of breast cancers are not detected by mammography. A normal mammogram should not delay biopsy of a clinically suspicious abnormality. [id number] Electronically Signed: Seth Mcmahon MD at 8:35 EDT ,
== END 2021-12-01 23:59 | disposition home or self-care (01) ==
LOC: OPBI 14:00
PROVIDERS: PCP Family Medicine; Referring Provider Family Medicine; Visit Provider Family Medicine
DX: Z12.31 Encounter for screening mammogram for malignant neoplasm of breast (principal)
CPT/HCPCS: 77063; 77067

== ENCOUNTER 2022-01-30 17:29 | Observation (INO) | payer MEDICARE, SELFPAY ==
[2022-01-30] VITALS (8 sets, daily range): BP systolic 122–143; BP diastolic 52–74; PULSE 64–74; RESP 16–18; TEMP 36.5–37.1; O2SAT 96–99; BMI 40.1; BMI 39.5
--- NOTE | 2022-01-30 17:44 | RAD_ITS ---
STUDY: X-RAY CHEST REASON FOR EXAM: Female, 71 years old. chest pain TECHNIQUE: 1 view COMPARISON: 05/17/2013 FINDINGS: The cardiac silhouette is top normal in size. Costophrenic angles are sharp. Lungs are clear. The trachea is midline. There is no pneumothorax. A small to moderate-sized hiatal hernia noted. The bones are grossly intact. RAD/Chest 1 View (Portable) IMPRESSION: No acute cardiopulmonary process. Electronically Signed: Mark Fitzgerald MD at 18:28 EDT ,
--- NOTE | 2022-01-30 17:44 | EKG12_ITS ---
Test Reason : Blood Pressure : / mmHG Vent. Rate : 076 BPM Atrial Rate : 076 BPM P-R Int : 190 ms QRS Dur : 104 ms QT Int : 404 ms P-R-T Axes : 065 013 024 degrees QTc Int : 454 ms Sinus rhythm with frequent Premature ventricular complexes Otherwise normal ECG Confirmed by PARKER MARTINEZ, RONI ([id number]), offline editor ROSIE REYNA ([id number]) on 02/01/2022 11:08:20 AM Referred By: Confirmed By:RONI CANALES MD
--- NOTE | 2022-01-30 17:45 | EDS_ITS ---
HPI History of Present Illness Chief Complaint: Chest Pain Detail of Chief Complaint: Chest pain that started about 45 minutes ago Informant: patient Narrative Narrative: Patient states that she was sitting when she developed pressure and burning across her chest that radiated into her neck and armpits as well as into her upper abdomen. Patient has history of nutcracker esophagus and esophageal spasm. Patient states that this discomfort felt different however because it was more pressure and more burning. She did take some hyoscyamine and when that did not resolve her pain like it normally does she got concerned and called the squad. She did have some diaphoresis and some mild nausea. Patient has no heart history. Patient is a diabetic and has history of hypertension. She has history of PVCs. Currently she states she is feeling significantly improved and only rates her pain about a 1 out of 10. Prior Similar Symptoms: Yes PFSH [facility] Medical History (Updated 01/30/22 @ 19:[address] Jessy Hoyos DO) Diabetes HTN (hypertension) Hypothyroid Home Medications Atenolol 25 mg PO BID 11/20/15 [History Last Taken Unknown] Enalapril Maleate 10 mg PO DAILY 11/20/15 [History Last Taken Unknown] Trazodone HCl 11/20/15 [History Last Taken Unknown] aspirin 81 mg PO DAILY@0800 11/20/15 [History Last Taken Unknown] esomeprazole magnesium [Nexium] 40 mg PO DAILY 11/20/15 [History Last Taken Unknown] citalopram 40 mg PO DAILY 12/13/20 [History Last Taken Unknown] glipizide 10 mg PO BID 12/13/20 [History Last Taken Unknown] hyoscyamine sulfate 0.125 mg PO DAILY 12/13/20 [History Last Taken Unknown] levothyroxine 112 mcg PO DAILY 12/13/20 [History Last Taken Unknown] loratadine 10 mg PO DAILY 12/13/20 [History Last Taken Unknown] simvastatin 5 mg PO DAILY 12/13/20 [History Last Taken Unknown] trazodone 100 mg PO QHS 12/13/20 [History Last Taken Unknown] Allergy/AdvReac Type Severity Reaction Status Date / Time neomycin Allergy Swelling Verified 01/30/22 17:31 Social History Smoking Status: Never smoker ROS ROS ED ROS Narrative Diaphoresis Review of Systems ROS Unobtainable: other Constitutional Constitutional ED: Reports lethargy; Denies chills, fever(s), sweats or weight loss Eyes Eyes: Denies blurry vision, change in vision or diplopia ENT ENT ED: Denies rhinorrhea or sore throat Cardiovascular Cardiovascular: Reports chest pain and racing heartbeat; Denies orthopnea Respiratory/Chest Respiratory/Chest: Reports dyspnea and dyspnea on exertion; Denies cough, orthopnea or sputum Gastrointestinal Gastrointestinal: Reports nausea; Denies abdominal pain, diarrhea or vomiting Genitourinary Genitourinary ED: Denies dysuria, hematuria or urinary frequency Musculoskeletal Musculoskeletal: Denies arthralgias, back pain, myalgias or neck pain Integumentary Denies abscess, Abrasions or rash Neurologic Neurologic: Denies headache(s) or weakness Psychiatric Psychiatric: Denies anxiety, depression or suicidal thoughts Endocrine Endocrinology: Denies polydipsia, polyphagia or polyuria Hematologic/Lymphatic Hematologic/Lymphatic: Denies easy bleeding, easy bruising or lymphadenopathy Allergic/Immunologic Allergic/Immunologic ED: Denies mouth swelling, tongue swelling or urticaria EXAM Physical Exam Const Vital Signs: 01/30/22 17:29 01/30/22 17:50 01/30/22 17:51 Temperature 98.7 F Temperature Source Oral Pulse Rate 74 71 Respiratory Rate 18 Blood Pressure 143/57 H 143/57 H Blood Pressure Mean 85 Pulse Ox 99 Oxygen Delivery Method Room Air Room Air 01/30/22 18:31 01/30/22 19:00 Temperature Temperature Source Pulse Rate 70 70 Respiratory Rate 16 16 Blood Pressure 122/52 H 137/59 H Blood Pressure Mean 75 85 Pulse Ox 98 96 Oxygen Delivery Method Room Air Room Air Positive well nourished and well developed General Appearance ED: well developed and NAD HEENT Reports TM's clear and moist mucous membranes normocephalic and atraumatic; Negative for trauma or tenderness Tympanic Membrane ED: Yes TM's clear Eyes PERRL and EOMs intact bilaterally General Eye ED: Negative for pale conjunctiva or scleral icterus Neck no lymphadenopathy, supple and no JVD General: Negative for tenderness Chest Wall inspection of chest normal and palpation of chest normal Chest: Negative for tenderness Resp normal respiratory effort and clear to auscultation bilaterally Effort and Inspection: Negative for respiratory distress or pain with movement Auscultation: Negative for rhonchi, wheezes or diminished lung sounds Cardio regular rate, regular rhythm, S1 normal heart sound, S2 normal heart sound and no murmurs Peripheral Pulses: pulses 2+ throughout GI normal to inspection, nondistended, normoactive bowel sounds, soft to palpation, non-tender, non-distended and no masses Back/Spine no CVA tenderness and no thoracic nor lumbar tenderness Extremity normal to inspection General Extremety ED: Negative for edema General Extremity: Negative for edema Neuro oriented x3, CN's II-XII intact bilaterally, no sensory deficits noted and gait normal Sensorium / Orientation: awake, alert, oriented to person, oriented to place and oriented to time Motor Exam: strength 5/5 throughout and strength abnormal Psych mental status grossly normal Skin no rashes or lesions noted and no wounds Heart Score History: Highly Suspicious ECG: Normal Age: >/= 65 years Risk Factors: 1 or 2 Risk Factors Troponin: </= Normal Limit Score: 5 MDM MDM Lab Data Labs: Laboratory Results - last 24 hr 01/30/22 01/30/22 17:45 17:45 WBC 9.3 RBC 4.78 Hgb 13.9 Hct 44.7 MCV 93.5 MCH 29.1 MCHC 31.1 L RDW Std Deviation 46.1 H RDW Coeff of Evelina 13.4 Plt Count 241 MPV 9.7 Immature Gran % (Auto) 0.300 Neut % (Auto) 60.9 Lymph % (Auto) 28.9 Twiggs % (Auto) 6.0 Eos % (Auto) 3.3 Baso % (Auto) 0.6 Absolute Neuts (auto) 5.7 Absolute Lymphs (auto) 2.70 Nucleated RBC % 0.3 Sodium 138 Potassium 4.3 Chloride 107 Carbon Dioxide 25.0 Anion Gap 6 BUN 43 H Creatinine 1.72 H Estim Creat Clear Calc 24.07 Est GFR (MDRD) Af Amer 38 L Est GFR (MDRD) Non-Af 31 L BUN/Creatinine Ratio 25.0 H Glucose 136 H Calcium 9.0 Troponin I High Sens 6 Radiography Diagnostic Testing: Clinical Impression(s) from Imaging Studies Chest X-Ray 01/30/22 17:44 IMPRESSION: No acute cardiopulmonary process. Electronically Signed: Mark Fitzgerald MD at 18:28 EDT , 1 view chest x-ray obtained interpreted by myself as no acute disease process. Radiology in agreement. EKG Initial EKG: Attestation: I personally reviewed and interpreted this EKG as follows: Comments: Sinus rhythm with a rate of 76 bpm with occasional PVCs Discharge Plan Dx/Rx/DC Orders Clinical Impression: Chest pain Disposition Disposition: Acute Care Hospital [facility]
[2022-01-30] MEDS: Aspirin 81 MG TAB.CHEW 324 MG PO (17:50)
[2022-01-30] MEDS: Nitroglycerin Oint 1 INCH PACKET TRANSDERM. (17:51)
[2022-01-30 17:56] LABS: Absolute Neutrophil Count 5.7 X10^3/uL (2.0-7.7); Basophil# 0.06 X10^3/uL; Basophil% 0.6 % (0-1); Eosinophil# 0.31 X10^3/uL; Eosinophils% 3.3 % (0-5); Hematocrit 44.7 % (37-47); Hemoglobin 13.9 g/dL (12.0-15.0); Lymphocyte % 28.9 % (19-41); Mean Corp Hgb Conc 31.1 g/dL (32-36); Mean Corpuscular Hgb 29.1 pg (27.0-32.0); Mean Corpuscular Volume 93.5 fL (81-99); Mean Platelet Vol. 9.7 fl (6.2-12.0); Monocyte# 0.56 X10^3/uL; NRBC Flagged by Analyzer 0.3 % (0-5); Neutrophil # 5.67 X10^3/uL (2.7-7.7); Neutrophil % 60.9 % (47-70); Platelet Count 241 K/mm3 (150-450); RBC Distribution Width CV 13.4 % (11.6-14.6); RBC Distribution Width SD 46.1 fl (35.1-43.9); Red Blood Count 4.78 M/mm3 (4.2-5.4); White Blood Count 9.3 K/mm3 (4.4-11.0)
[2022-01-30] MEDS: 0.9% Normal Saline 1,000 ML 150 ML IV (17:56)
[2022-01-30 18:23] LABS: Anion Gap 6 (5-15); BUN 43 mg/dL (7-18); Chloride 107 mmol/L (98-107); Creatinine, Serum 1.72 mg/dL (0.55-1.02); EST Glomerular Filtration Rate 31 mL/min (>60); Est Glom Filt Rate - Afr Amer 38 mL/min (>60); Estimated Creatinine Clearance 24.07 ml/min; Glucose 136 mg/dL (74-106); Potassium 4.3 mmol/L (3.5-5.1); Sodium Level 138 mmol/L (136-145); Troponin-I HS (w/2H Reflex) 6 pg/mL (3.0-54.0)
--- NOTE | 2022-01-30 19:11 | HP.PCM.HOS_ITS ---
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 The pain was of severity 8/10. The pain radiated across her chest to her left neck into her left jaw. Associated with her symptom was nausea and diaphoresis. Patient was brought to the hospital via squad. She described the pain as burning and pressure. Initially she thought that the pain was due to having nutcracker esophagus however hyoscyamine did not immediately relieve it as previous. With hyoscyamine her pain eventually went away but she is unsure when the pain went away secondary to hyoscyamine or secondary to time. Also online Nutcracker esophagus this time around she felt a tingling sensation in her bilateral hands. She thought that this tingling sensation and diaphoresis was secondary to hypoglycemia however her blood glucose was normal. She denies any aggravating factors to the pain. She denies any ameliorating factors to the pain. Nitroglycerin paste was placed on patient's shoulder at emergency department. Even before nitroglycerin paste was placed patient had received significant improvement in her chest pain. At the time of examination by hospitalist patient report that her pain was pretty good. Of of notes patient report that his father from a massive heart attack at the age of 66 [facility] Medical History (Updated 01/30/22 @ 19:[address] South Benitez MD) Diabetes HTN (hypertension) Hypothyroid Home Medications Atenolol 25 mg PO BID 11/20/15 [History Last Taken Unknown] Enalapril Maleate 10 mg PO DAILY 11/20/15 [History Last Taken Unknown] aspirin 81 mg PO DAILY@0800 11/20/15 [History Last Taken Unknown] esomeprazole magnesium [Nexium] 40 mg PO DAILY 11/20/15 [History Last Taken Unknown] citalopram 40 mg PO DAILY 12/13/20 [History Last Taken Unknown] glipizide 10 mg PO BID 12/13/20 [History Last Taken Unknown] hyoscyamine sulfate 0.125 mg PO DAILY 12/13/20 [History Last Taken Unknown] levothyroxine 112 mcg PO DAILY 12/13/20 [History Last Taken Unknown] loratadine 10 mg PO DAILY 12/13/20 [History Last Taken Unknown] simvastatin 5 mg PO DAILY 12/13/20 [History Last Taken Unknown] trazodone 100 mg PO QHS 12/13/20 [History Last Taken Unknown] calcium 600 mg PO DAILY 01/30/22 [History Last Taken 01/29/22] cholecalciferol (vitamin D3) [Vitamin D3] 25 mcg PO DAILY 01/30/22 [History Last Taken 01/30/22] dapagliflozin [Farxiga] 10 mg PO DAILY 01/30/22 [History Last Taken 01/30/22] insulin NPH isoph U-100 human [Novolin N NPH U-100 Insulin] 14 unit SUBCUT QHS 01/30/22 [History Last Taken 01/29/22] Allergy/AdvReac Type Severity Reaction Status Date / Time neomycin Allergy Swelling Verified 01/30/22 17:31 Family History (Updated 01/30/22 @ 19:[address] South Benitez MD) Other Alzheimer disease CAD (coronary artery disease) Osteoporosis Thyroid disorder Ziehc-Sxzhkfbrz-Yzbab syndrome Surgical History (Updated 01/30/22 @ 19:[address] South Benitez MD) H/O shoulder surgery H/O total thyroidectomy History of cholecystectomy History of hysterectomy History of tonsillectomy Hx of appendectomy Social History Smoking Status: Never smoker ROS ROS Narrative Pertinent positives and pertinent negatives as noted in HPI. All other systems were reviewed and are negative. Vital Signs Vital Signs Vital Signs: 01/30/22 17:29 01/30/22 17:50 01/30/22 17:51 Temperature 98.7 F Temperature Source Oral Pulse Rate 74 71 Respiratory Rate 18 Blood Pressure 143/57 H 143/57 H Blood Pressure Mean 85 Pulse Ox 99 Oxygen Delivery Method Room Air Room Air 01/30/22 18:31 01/30/22 19:00 Temperature Temperature Source Pulse Rate 70 70 Respiratory Rate 16 16 Blood Pressure 122/52 H 137/59 H Blood Pressure Mean 75 85 Pulse Ox 98 96 Oxygen Delivery Method Room Air Room Air Weight Weight: 99.5 kg Body Mass Index (BMI) 40.1 Physical Exam Narrative Physical exam: General: Well-nourished, well-developed. Head: Normocephalic, atraumatic, no tenderness Eyes: Vision is grossly intact. EOMI ENT, no trauma, moist mucous membranes, no rhinorrhea Neck: Nontender, full range of motion, no spinal tenderness, deformities, step- off CVS: Regular rate and rhythm. S1-S2 present. No murmur, gallop or rub. Respiratory : clear to auscultation bilaterally, chest wall nontender, no wheezing Abdomen: Soft, nontender, nondistended, normal bowel sounds, no masses : Deferred Back: Nontender, no CVA tenderness, no midline spinal tenderness, deformities, step-offs Extremities: Nontender full range of motion, no trauma Skin: Normal color, no trauma, abrasions Neuro: Alert, oriented, cranial nerves II through XII grossly intact. Psychiatry: Normal mood. Normal affect. Not depressed. Not anxious. Results Lab / Micro Data Result Diagrams: 01/30/22 17:45 01/30/22 17:45 Labs: Laboratory Results - last 24 hr 01/30/22 17:45: WBC 9.3, RBC 4.78, Hgb 13.9, Hct 44.7, MCV 93.5, MCH 29.1, MCHC 31.1 L, RDW Std Deviation 46.1 H, RDW Coeff of Evelina 13.4, Plt Count 241, MPV 9.7, Immature Gran % (Auto) 0.300, Neut % (Auto) 60.9, Lymph % (Auto) 28.9, [place] % (Auto) 6.0, Eos % (Auto) 3.3, Baso % (Auto) 0.6, Absolute Neuts (auto) 5.7, Absolute Lymphs (auto) 2.70, Nucleated RBC % 0.3 01/30/22 17:45: Sodium 138, Potassium 4.3, Chloride 107, Carbon Dioxide 25.0, Anion Gap 6, BUN 43 H, Creatinine 1.72 H, Estim Creat Clear Calc 24.07, Est GFR (MDRD) Af Amer 38 L, Est GFR (MDRD) Non-Af 31 L, BUN/Creatinine Ratio 25.0 H, Glucose 136 H, Calcium 9.0, Troponin I High Sens 6 Radiology Impression Chest X-Ray 01/30/22 17:44 IMPRESSION: No acute cardiopulmonary process. Electronically Signed: Mark Fitzgerald MD at 18:28 EDT , Assessment & Plan Assessment/Plan (1) Chest pain: QUALIFIERS: Chest pain type: unspecified Qualified Code(s): R07.9 - Chest pain, unspecified (2) Obesity: QUALIFIERS: Obesity type: due to excess calories Obesity classification: adult class 3 (BMI >= 40) Serious obesity comorbidity presence: with serious comorbidity Body mass index: BMI 40.0-44.9 Qualified Code(s): E66.01 - Morbid (severe) obesity due to excess calories; Z68.41 - Body mass index [BMI] 40.0-44.9, adult (3) Type 2 diabetes mellitus: QUALIFIERS: Diabetes mellitus fci insulin use: with long term care phlebotomist use Diabetes mellitus complication status: with kidney complications Diabetes mellitus complication detail: with chronic kidney disease Chronic kidney disease stage: stage 3 (moderate) Chronic kidney disease stage 3 subtype: stage 3b (GFR 30-44) Qualified Code(s): E11.22 - Type 2 diabetes mellitus with diabetic chronic kidney disease; N18.32 - Chronic kidney disease, stage 3b; Z79.4 - prison (current) use of insulin PLAN: Chest pain Place on a monitored bed at progressive care unit Actual CXR image was independently visualized. No acute cardiopulmonary process was noted. Actual EKG tracing was independently visualized. EKG tracing showed sinus rhythm with PVCs. No ST or T wave abnormalities noted. On presentation received full dose aspirin at the emergency department. ASA 81 mg p.o. daily continued. Patient only on simvastatin 5 mg daily at home. Escalated to Lipitor 40 mg daily. Discussed with patient. On presentation Nitropaste was placed on patient at the ED; continued; remove mid night before stress test. Morphine as needed for pain ordered We will check lipid panel. Initial high sensitive troponin was negative. Serial cardiac enzymes ordered Stat EKG as needed for chest pain Treadmill stress test in the AM if the cardiac enzymes are negative Diabetes mellitus with nephropathy Patient with mild hyperglycemia on presentation Hold home basal insulin for now. Glipizide and Farxiga continued. Accu-Chek QA CHS with correction scale insulin ordered. Hypertension Blood pressure is stable in regard to her age. Atenolol for hypertension and history of PVCs continued, Trend blood pressure and adjust blood pressure medications. CKD stage IIIb Stable Trend BMP Morbid Obesiety BMI: 40.1 kg/m?. Complicates care. Lifestyle modification recommended. DVT prophylaxis SCDs ordered Charges/Coding Visit Charges OBSV E&M: 08831 Initial observation care L3
[2022-01-30 19:53] LABS: Reflex Troponin-HS? (from REC) Y
[2022-01-30 20:14] LABS: Troponin-I HS 4 pg/mL (3.0-54.0)
--- NOTE | 2022-01-30 20:21 | EKG12_ITS ---
Test Reason : CP ADMIT Blood Pressure : / mmHG Vent. Rate : 059 BPM Atrial Rate : 059 BPM P-R Int : 200 ms QRS Dur : 098 ms QT Int : 416 ms P-R-T Axes : 060 015 023 degrees QTc Int : 411 ms Sinus bradycardia Low voltage QRS Borderline ECG When compared with ECG of 17-MAY-2013 22:56, No significant change was found Confirmed by PARKER MARTINEZ, RONI ([id number]), movie editor ROSIE REYNA ([id number]) on 02/01/2022 11:27:50 AM Referred By: DR MORAN Confirmed By:RONI CANALES MD
[2022-01-30] MEDS: traZODone 50 MG Tablet PO (23:08)
[2022-01-30] MEDS: Atenolol 25 MG Tablet PO (23:08)
[2022-01-30] MEDS: Atorvastatin Calcium 40 MG Tablet PO (23:08)
[2022-01-30] MEDS: Insulin Lispro 100 UNIT/ML INSULN.PEN SC (23:39)
[2022-01-31 00:53] LABS: Troponin-I HS 5 pg/mL (3.0-54.0)
[2022-01-31 01:05] LABS: Bedside Glucose 171 mg/dL (74-106)
[2022-01-31 01:38] VITALS: PULSE 73
[2022-01-31 02:30] VITALS: BP 102/53; PULSE 59; RESP 16; TEMP 36.7; O2SAT 96
[2022-01-31 03:00] VITALS: PULSE 64
[2022-01-31 04:32] LABS: Absolute Lymphocyte Count 3.27 X10^3/uL (0.83-4.51); Absolute Neutrophil Count 4.1 X10^3/uL (2.0-7.7); Basophil# 0.06 X10^3/uL; Basophil% 0.7 % (0-1); Eosinophil# 0.32 X10^3/uL; Eosinophils% 3.9 % (0-5); Hematocrit 39.2 % (37-47); Hemoglobin 12.2 g/dL (12.0-15.0); Lymphocyte # 3.27 X10^3/ul (0.83-4.51); Lymphocyte % 39.6 % (19-41); Mean Corp Hgb Conc 31.1 g/dL (32-36); Mean Corpuscular Hgb 28.5 pg (27.0-32.0); Mean Corpuscular Volume 91.6 fL (81-99); Mean Platelet Vol. 9.9 fl (6.2-12.0); Monocyte% 6.1 % (0-10); NRBC Flagged by Analyzer 0 % (0-5); Neutrophil # 4.08 X10^3/uL (2.7-7.7); Neutrophil % 49.5 % (47-70); Platelet Count 217 K/mm3 (150-450); RBC Distribution Width CV 13.7 % (11.6-14.6); RBC Distribution Width SD 46.4 fl (35.1-43.9); Red Blood Count 4.28 M/mm3 (4.2-5.4); White Blood Count 8.3 K/mm3 (4.4-11.0)
[2022-01-31 05:02] LABS: Anion Gap 7 (5-15); BUN 38 mg/dL (7-18); BUN/Creat Ratio 25.7 RATIO (10-20); Calcium,Total 8.4 mg/dL (8.5-10.1); Chloride 109 mmol/L (98-107); Cholesterol 137 mg/dL (200); Creatinine, Serum 1.48 mg/dL (0.55-1.02); EST Glomerular Filtration Rate 37 mL/min (>60); Est Glom Filt Rate - Afr Amer 45 mL/min (>60); Estimated Creatinine Clearance 27.97 ml/min; Glucose 105 mg/dL (74-106); High Density Lipoprotein 37 mg/dL; Potassium 4.1 mmol/L (3.5-5.1); Sodium Level 140 mmol/L (136-145); Triglycerides 163 mg/dL; Very Low Density Lipoprotein 33 mg/dL (5-40)
--- NOTE | 2022-01-31 05:47 | EKG12_ITS ---
Test Reason : Blood Pressure : / mmHG Vent. Rate : 062 BPM Atrial Rate : 062 BPM P-R Int : 210 ms QRS Dur : 100 ms QT Int : 444 ms P-R-T Axes : 058 013 021 degrees QTc Int : 450 ms Sinus rhythm with 1st degree A-V block Low voltage QRS Borderline ECG Confirmed by PARKER MARTINEZ, RONI ([id number]), newspaper or periodical editor ARCADIO GURROLA ([id number]) on 02/02/2022 10:26:47 AM Referred By: Confirmed By:RONI CANALES MD
[2022-01-31] MEDS: Levothyroxine 112 MCG Tablet PO (06:07)
[2022-01-31] MEDS: Lisinopril 10 MG Tablet PO (06:14)
[2022-01-31] MEDS: Aspirin E.C. 81 MG Tablet PO (06:14)
[2022-01-31 06:46] LABS: Bedside Glucose 99 mg/dL (74-106)
[2022-01-31 08:00] VITALS: BP 125/57; PULSE 57; PULSE 61; RESP 18; TEMP 36.9; O2SAT 94
[2022-01-31 08:21] LABS: Hemoglobin A1c 6.7 % (3.8-5.6)
[2022-01-31] MEDS: Calcium (Elemental) 500 MG Tablet PO (10:19)
[2022-01-31] MEDS: Loratadine 10 MG Tablet PO (10:19)
[2022-01-31] MEDS: Cholecalciferol (VIT D3) 25 MCG TABLET (1,000 UNITS) PO (10:19)
[2022-01-31] MEDS: Pantoprazole Sodium 40 MG Tablet PO (10:20)
[2022-01-31] MEDS: Citalopram 40 MG TABLET PO (10:20)
[2022-01-31] MEDS: Atenolol 25 MG Tablet PO (10:21)
[2022-01-31 12:00] VITALS: PULSE 68
--- NOTE | 2022-01-31 13:10 | STRESSREP ---
Stress Test Report Exercise stress myocardial perfusion test. Stress protocol: Resting KG demonstrates sinus bradycardia with a rate of 56 bpm normal intervals are noted. Patient exercised according to the regular Fernando protocol for total duration of 4 minutes and 31 seconds. The maximum heart rate was 131 bpm which was 87% of max impacted heart rate the maximum workload was 7 metabolic equivalents. At rest there were no ST or T wave changes noted suggest ischemia and at peak exercise upsloping ST changes were noted with did not meet the criteria for ischemia. No clinical angina was noted. The test was terminated due to dyspnea. The peak blood pressure is 150/62 mmHg. Myocardial perfusion protocol. 14.0 mCi of technetium 99m sestamibi was injected at rest. The patient exercised according to regular Fernando protocol for 4 minutes and 31 seconds and at peak exercise 45.0 mCi of technetium 99m sestamibi was injected stress images were obtained stress and rest images were reconstructed in comparing the short axis vertical long horizontal long axis. Gated images were also obtained to Perfusion SPECT analysis: Review of the stress images demonstrate normal uptake of tracer noted in all areas of the myocardium. The resting images similarly demonstrate normal uptake of tracer noted in all areas of the myocardium. No areas of reversibility are noted suggest ischemia no previous infarct is noted. Gated SPECT analysis: The gated ejection fraction is 68%. Conclusion: Normal exercise myocardial perfusion stress test at a moderate workload. Preserved ejection fraction.
[2022-01-31] MEDS: glipiZIDE XL 5 MG Tablet 10 MG PO (13:40)
[2022-01-31 13:51] LABS: Bedside Glucose 138 mg/dL (74-106)
[2022-01-31 15:34] VITALS: BP 109/76; PULSE 64; RESP 18; TEMP 37; O2SAT 94
--- NOTE | 2022-01-31 15:34 | DS.PCM_ITS ---
Providers Date of Admission: 01/30/22 Date of Discharge: 01/31/22 Primary Care Physician: Dr. Ursula Ornelas DO Reason For Visit: CHEST PAIN Diagnosis Discharge Diagnosis (1) Chest pain: Status: Acute Code(s): R07.9 - Chest pain, unspecified Qualifiers: Chest pain type: unspecified Qualified Code(s): R07.9 - Chest pain, unspecified (2) Obesity: Status: Chronic Code(s): E66.9 - Obesity, unspecified Qualifiers: Obesity type: due to excess calories Obesity classification: adult class 3 (BMI >= 40) Serious obesity comorbidity presence: with serious comorbidity Body mass index: BMI 40.0-44.9 Qualified Code(s): E66.01 - Morbid (severe) obesity due to excess calories; Z68.41 - Body mass index [BMI] 40.0- 44.9, adult (3) Type 2 diabetes mellitus: Status: Chronic Code(s): E11.9 - Type 2 diabetes mellitus without complications Qualifiers: Diabetes mellitus nursing home insulin use: with intermediate school teacher use Diabetes mellitus complication status: with kidney complications Diabetes mellitus complication detail: with chronic kidney disease Chronic kidney disease stage: stage 3 (moderate) Chronic kidney disease stage 3 subtype: stage 3b (GFR 30-44) Qualified Code(s): E11.22 - Type 2 diabetes mellitus with diabetic chronic kidney disease; N18.32 - Chronic kidney disease, stage 3b; Z79.4 - alf (current) use of insulin Medications at Discharge Home Medications Atenolol 25 mg PO BID 11/20/15 Enalapril Maleate 10 mg PO DAILY 11/20/15 aspirin 81 mg PO DAILY@0800 11/20/15 esomeprazole magnesium [Nexium] 40 mg PO DAILY 11/20/15 citalopram 40 mg PO DAILY 12/13/20 glipizide 10 mg PO BID 12/13/20 hyoscyamine sulfate 0.125 mg PO DAILY 12/13/20 levothyroxine 112 mcg PO DAILY 12/13/20 loratadine 10 mg PO DAILY 12/13/20 simvastatin 5 mg PO DAILY 12/13/20 trazodone 50 mg PO QHS 12/13/20 Farxiga 10 mg PO DAILY 01/30/22 Novolin N NPH U-100 Insulin 14 unit SUBCUT QHS 01/30/22 calcium 600 mg PO DAILY 01/30/22 cholecalciferol (vitamin D3) [Vitamin D3] 25 mcg PO DAILY 01/30/22 Hospital Course Operations None Procedures Nuclear stress test Summary of Care Provided Minutes Spent on Discharge: 30 Hospital Course: Mrs. Hopson is a 71-year-old white female who presented to the emergency department [facility] on 01/30/2022 with a chief complaint of chest pain. The patient reported she developed substernal chest pain about 45 minutes prior to presentation and rated it at 8 out of 10. She states initially it was substernal but then started radiating across her left and right chest and into her left neck and jaw area. She had associated nausea and diaphoresis at this time. She was brought to the emergency department via squad and at that time described her pain as burning and pressure. She states she does have a known history of nutcracker esophagus and esophageal spasm for which she takes hycosamine. She stated she did take this at home and her pain did eventually go away with a high Cosamin but it did not go away as quickly as it typically does. She denies any aggravating or relieving factors. She was given nitroglycerin in the emergency department but the patient had resolution of chest pain prior to this being given. She does report that her father did from a massive heart attack at the age of 66. She has a past medical history of diabetes and hypertension. She was admitted to PCU and monitored. Initial EKG showed no signs of acute ischemia. Cardiac enzymes were cycled and found to be 6, 4, and 5. Her hemoglobin A1c was 6.7. Her lipids were as follows-total cholesterol 137/LDL 67/HDL 37/triglycerides 163. Her admitting labs were otherwise fairly unremarkable other than CKD stage IIIb and her serum creatinine was at baseline. On the a.m. of 01/31/2022 she was taken for an exercise stress test. EF was estimated to be 68%. Her stress test showed normal exercise myocardial perfusion with a moderate workload. She had no further chest symptoms during her hospital course. She was deemed stable for discharge on 01/31/2022. We did discuss prior to discharge that if she develops any further symptoms to make sure she comes immediately back to the emergency department as 1 can have a negative stress test and still have coronary disease. She voiced understanding and stated that she would comply with this if she had recurrent symptoms. Discharge diagnoses: Noncardiac chest pain-resolved CKD stage IIIb Controlled DM-2 Hyperlipidemia Hypothyroidism GERD Obesity Physical Exam Const alert, oriented x3 and no apparent distress Constitutional Narrative: Older white female sitting up in bed, at bedside, patient appears comfortable nontoxic, watching television General Appearance: cooperative, comfortable, well kempt and well developed Orientation / Consciousness: awake Exam Limitations: no limitations Nutritional Appearance: obese HEENT normocephalic, head/scalp atraumatic, hearing grossly normal bilaterally and moist oral mucous membranes HEENT Narrative: Mallampati 3, no thrush, dentition is good Neck no lymphadenopathy, supple, no JVD and no carotid bruits Neck Narrative: Trachea midline, no thyroid enlargement Resp normal respiratory effort, no retractions, no use of accessory muscles and clear to auscultation bilaterally Auscultation: Negative for crackles, rales, rhonchi or wheezes Cardio regular rate, regular rhythm, S1 normal heart sound, S2 normal heart sound, no murmurs, no rub, no gallops, no clicks and no JVD Cardio Narrative: No tenderness with palpation to the anterior chest wall GI normal to inspection, nondistended, normoactive bowel sounds, soft to palpation, non-tender and non-distended Extremity no clubbing, cyanosis or edema Extremity Narrative: 2+ pedal pulses Neuro oriented x3, CN's II-XII intact bilaterally, moves all extremities, no focal motor deficits and no sensory deficits noted Sensorium / Orientation: awake and alert Speech: speech normal Motor Exam: strength 5/5 throughout Psych affect normal Psych Narrative: Very appropriate and pleasantly interactive Weight / BMI Weight Weight: 98.1 kg Body Mass Index (BMI) 39.5 ABG / Lab / Microbiology Data Result Diagrams: 01/31/22 03:52 01/31/22 03:52 Laboratory: Laboratory Results - last 24 hr 01/30/22 17:45: WBC 9.3, RBC 4.78, Hgb 13.9, Hct 44.7, MCV 93.5, MCH 29.1, MCHC 31.1 L, RDW Std Deviation 46.1 H, RDW Coeff of Evelina 13.4, Plt Count 241, MPV 9.7, Immature Gran % (Auto) 0.300, Neut % (Auto) 60.9, Lymph % (Auto) 28.9, [place] % (Auto) 6.0, Eos % (Auto) 3.3, Baso % (Auto) 0.6, Absolute Neuts (auto) 5.7, Absolute Lymphs (auto) 2.70, Nucleated RBC % 0.3 01/30/22 17:45: Sodium 138, Potassium 4.3, Chloride 107, Carbon Dioxide 25.0, Anion Gap 6, BUN 43 H, Creatinine 1.72 H, Estim Creat Clear Calc 24.07, Est GFR (MDRD) Af Amer 38 L, Est GFR (MDRD) Non-Af 31 L, BUN/Creatinine Ratio 25.0 H, Glucose 136 H, Calcium 9.0, Troponin I High Sens 6 01/30/22 19:45: Troponin I High Sens 4 01/30/22 23:37: POC Glucose 171 H 01/31/22 00:09: Troponin I High Sens 5 01/31/22 03:52: WBC 8.3, RBC 4.28, Hgb 12.2, Hct 39.2, MCV 91.6, MCH 28.5, MCHC 31.1 L, RDW Std Deviation 46.4 H, RDW Coeff of Evelina 13.7, Plt Count 217, MPV 9.9, Immature Gran % (Auto) 0.200, Neut % (Auto) 49.5, Lymph % (Auto) 39.6, [place] % (Auto) 6.1, Eos % (Auto) 3.9, Baso % (Auto) 0.7, Absolute Neuts (auto) 4.1, Absolute Lymphs (auto) 3.27, Nucleated RBC % 0 01/31/22 03:52: Sodium 140, Potassium 4.1, Chloride 109 H, Carbon Dioxide 24.0, Anion Gap 7, BUN 38 H, Creatinine 1.48 H, Estim Creat Clear Calc 27.97, Est GFR (MDRD) Af Amer 45 L, Est GFR (MDRD) Non-Af 37 L, BUN/Creatinine Ratio 25.7 H, Glucose 105, Calcium 8.4 L, Triglycerides 163, Cholesterol 137, LDL Cholesterol 67, VLDL Cholesterol 33, HDL Cholesterol 37 L 01/31/22 03:52: Hemoglobin A1c 6.7 H 01/31/22 06:17: POC Glucose 99 01/31/22 13:32: POC Glucose 138 H Radiography Diagnostic Testing: Radiology Impression Chest X-Ray 01/30/22 17:44 IMPRESSION: No acute cardiopulmonary process. Electronically Signed: Mark Fitzgerald MD at 18:28 EDT , D/C Instructions Discharge Diet: Low fat / Low cholesterol and 1800 Calorie Control Diet Discharge Activity: Return to Normal Activity Return to work on: 02/01/22 Meaningful Use Info Meaningful Use Diagnoses (Choose all that apply): None applicable Discharge Plan Admission Admit Date/Time: 01/30/22 19:11 Primary Reason for Your Visit: Chest pain Attending Provider: Carmen Ward Primary Care Provider: Ursula Ornelas Consulting Providers: South Benitez Discharge Orders/Prescriptions Prescriptions: Continued Atenolol 25 mg PO BID RF: 0 esomeprazole magnesium [Nexium] 40 MG capsule 40 mg PO DAILY RF: 0 aspirin 81 MG tablet,chewable 81 mg PO DAILY@0800 RF: 0 Enalapril Maleate 10 mg PO DAILY RF: 0 citalopram 40 MG tablet 40 mg PO DAILY RF: 0 glipizide 10 MG tablet extended release 24hr 10 mg PO BID RF: 0 trazodone 100 MG tablet 50 mg PO QHS RF: 0 simvastatin 5 MG tablet 5 mg PO DAILY RF: 0 hyoscyamine sulfate 0.125 MG tablet,disintegrating 0.125 mg PO DAILY RF: 0 loratadine 10 MG tablet 10 mg PO DAILY RF: 0 levothyroxine 112 MCG tablet 112 mcg PO DAILY RF: 0 calcium 600 mg Capsule 600 mg PO DAILY RF: 0 Novolin N NPH U-100 Insulin 100 unit/mL suspension 14 unit SUBCUT QHS RF: 0 Farxiga 10 mg tablet 10 mg PO DAILY RF: 0 cholecalciferol (vitamin D3) [Vitamin D3] 25 mcg (1,000 unit) Capsule 25 mcg PO DAILY RF: 0 Referrals / Follow Up: Ursula Ornelas DO [Primary Care Provider] - Within 2 Weeks Disposition Disposition (needs filled in before D/C Order can be placed): Home, Self Care Charges/Coding Visit Charges Inpatient E&M: 80032 Disch Hosp
--- NOTE | 2022-01-31 16:04 | CHAPLAIN ---
Type of Pastoral Visit _x__ Initial Visit ___ Follow-up Visit ___ On-call Visit ___ General Patient Visit ___ Spiritual Assessment ___ Family Conference ___ Bereavement ___ Rapid Response ___ Code Blue ___ Other (describe below) Pastoral Care Referral From _x__ Patient ___ Family ___ Nurse ___ Physician ___ Tire Sorter ___ Research Engineer Marine Equipment ___ Other (describe below) Sacrament/Intervention ___ Active listening ___ Anointing ___ Jewish ___ Bereavement ___ Communion ___ Karly exploration ___ ___ Life review ___ Prayer ___ Reconciliation ___ Sacrament of Sick _x__ Supportive presence ___ Wedding ___ Other (describe below) Pastoral Comments patient had good news and will be discharged soon; spouse is with her; good wishes and offer of support as desired
== END 2022-01-31 15:35 | disposition home or self-care (01) ==
LOC: ED 19:21 → PCU 19:33
PROVIDERS: Admitting Provider Hospitalist; Emergency Provider Emergency Medicine; PCP Family Medicine; Visit Provider Internal Medicine
DX: R07.89 Other chest pain (principal); E11.649 Type 2 diabetes mellitus with hypoglycemia without coma; E11.22 Type 2 diabetes mellitus with diabetic chronic kidney disease; Z68.41 Body mass index [BMI] 40.0-44.9, adult; E66.01 Morbid (severe) obesity due to excess calories; Z79.4 Long term (current) use of insulin; N18.32 Chronic kidney disease, stage 3b; I12.9 Hypertensive chronic kidney disease with stage 1 through stage 4 chronic kidney disease, or unspecified chronic kidney disease; K21.9 Gastro-esophageal reflux disease without esophagitis; Z79.84 Long term (current) use of oral hypoglycemic drugs; E89.0 Postprocedural hypothyroidism; E78.5 Hyperlipidemia, unspecified; Z79.899 Other long term (current) drug therapy; Z79.82 Long term (current) use of aspirin; Z79.890 Hormone replacement therapy; K22.4 Dyskinesia of esophagus
CPT/HCPCS: 36415; 71045; 78452; 80048; 80061; 82962; 83036; 84484; 85025; 93005; 93017; 96360; 96361; 99218; 99285; A9500; J7030; A4216; G0378

== ENCOUNTER → 2022-02-06 | Outpatient (CLI) | payer MEDICARE, SELFPAY ==
[2022-02-06 12:30] LABS: Hemoglobin 13.6 g/dL (12.0-15.0); Mean Corp Hgb Conc 30.9 g/dL (32-36); Mean Corpuscular Hgb 28.7 pg (27.0-32.0); Mean Corpuscular Volume 92.8 fL (81-99); Mean Platelet Vol. 10.2 fl (6.2-12.0); Platelet Count 251 K/mm3 (150-450); RBC Distribution Width CV 13.6 % (11.6-14.6); RBC Distribution Width SD 46.3 fl (35.1-43.9); Red Blood Count 4.74 M/mm3 (4.2-5.4)
[2022-02-06 12:36] LABS: PTHIN 83.1 pg/mL (18.4-80.1)
[2022-02-06 12:41] LABS: Vitamin D,25 Hydroxy 57.2 ng/mL
[2022-02-06 12:44] LABS: Albumin, Serum 3.5 g/dL (3.2-5.0); BUN 39 mg/dL (7-18); BUN/Creat Ratio 24.8 RATIO (10-20); Chloride 109 mmol/L (98-107); Creatinine, Serum 1.57 mg/dL (0.55-1.02); EST Glomerular Filtration Rate 35 mL/min (>60); Est Glom Filt Rate - Afr Amer 42 mL/min (>60); Glucose 153 mg/dL (74-106); Phosphorus 3.4 mg/dL (2.5-4.9); Potassium 4.1 mmol/L (3.5-5.1); Sodium Level 139 mmol/L (136-145)
[2022-02-06 12:54] LABS: Protein, Urine (Random) 22.6 mg/dL (<11.9); Protein:Creat Ratio 160 mg/g CRE (0-200)
== END | disposition home or self-care (01) ==
LOC: MTLAB 10:14
PROVIDERS: PCP Family Medicine; Referring Provider Internal Medicine Nephrology; Visit Provider Internal Medicine Nephrology
DX: N18.31 Chronic kidney disease, stage 3a (principal)
CPT/HCPCS: 36415; 80069; 82306; 82570; 83970; 84156; 85027

== ENCOUNTER → 2022-03-26 | Outpatient (CLI) | payer MEDICARE, SELFPAY ==
--- NOTE | 2022-03-26 | LES_PTH ---
PATIENT: PATRICIA VALENCIA LOC: [facility] #:[id number] AGE/SX: 71/F ROOM: RE03/26/[address]: Dr. Ursula Ornelas DO : 1950 BED: DIS: 03/26/2022 SPEC #: [id number] RECD: 03/26/22 17:30 STATUS: RYLAN REEMA #: [id number] DANA: 03/26/22 00:[address]: Ursula Ornelas DEPT: SURGICAL PATHOLOGY RECD BY: Gurpreet Kilpatrick Tissues: Skin of face, NOS Procedures: Surgery Specimen Level IV HEADER OPERATION: Excision lesion right cheek PRE-OP DIAGNOSIS: Enlarging skin lesion, treated x3 with cryo, basal cell CA vs intradermal nevus TISSUE SUBMITTED: Right cheek MICROSCOPIC DIAGNOSIS Lesion of right cheek, shave biopsy: Intradermal nevus. AM:grant 03/28/2022 MICROSCOPIC DESCRIPTION Slides are reviewed. GROSS DESCRIPTION Received in fixative is one container labeled with the patient's name and designated right cheek. The specimen consists of a light lewis shaved biopsy of skin measuring 0.5 x 0.3 x 0.2 cm. The specimen is totally submitted in one cassette for postfixation sectioning. / AM:grant 03/27/2022 TC:5 CPT: 69091
== END | disposition home or self-care (01) ==
PROVIDERS: PCP Family Medicine; Visit Provider Family Medicine
DX: D23.39 Other benign neoplasm of skin of other parts of face (principal)
CPT/HCPCS: 88305